=== PATIENT | female | born 1945 | race Caucasian/White ===

== ENCOUNTER → 2016-11-18 | Outpatient (REF) | payer MEDICARE ==
[~2016-11-18] MED LIST: CALCTAB23 PO; MULT1TAB8 PO
[2016-11-18 13:55] LABS: MEAN CORPUSCULAR HEMOGLOBIN 31.5 pg (27.0-33.0); MEAN CORPUSCULAR HGB CONC 32.6 g/dl (32.0-36.5); MEAN CORPUSCULAR VOLUME 96.8 fl (80.0-96.0); RED CELL DISTRIBUTION WIDTH 13.3 % (11.5-14.5); WHITE BLOOD COUNT 7.8 K/mm3 (4.0-10.0)
[2016-11-18 14:28] LABS: ALBUMIN 3.5 GM/DL (3.2-5.2); ALBUMIN/GLOBULIN RATIO 0.92 (1.00-1.93); ALKALINE PHOSPHATASE 83 U/L (45-117); ALT/SGPT 21 U/L (12-78); ANION GAP 4 MEQ/L (8-16); AST/SGOT 17 U/L (15-37); BILIRUBIN,TOTAL 0.4 MG/DL (0.2-1.0); BLOOD UREA NITROGEN 24 MG/DL (7-18); CARBON DIOXIDE LEVEL 34 MEQ/L (21-32); CHLORIDE LEVEL 101 MEQ/L (98-107); CHOLESTEROL LEVEL 223 MG/DL (<200); CREATININE FOR GFR 0.57 MG/DL (0.55-1.02); FREE T4 0.69 NG/DL (0.76-1.46); GLOMERULAR FILTRATION RATE > 60.0 (>39); GLUCOSE, FASTING 88 MG/DL (83-110); POTASSIUM SERUM 4.6 MEQ/L (3.5-5.1); SODIUM LEVEL 139 MEQ/L (136-145); TOTAL PROTEIN 7.3 GM/DL (6.4-8.2); TRIGLYCERIDES LEVEL 101 MG/DL (<150)
== END ==
LOC: M SFHCPLAZ 10:21
PROVIDERS: ATTEND Student in an Organized Health Care Education/Training Program
DX: Z79.899 Other long term (current) drug therapy (principal); R94.6 Abnormal results of thyroid function studies; R73.03 Prediabetes; E78.5 Hyperlipidemia, unspecified

== ENCOUNTER → 2016-11-25 | Outpatient (CLI) | payer MEDICARE ==
--- NOTE | 2016-11-25 15:40 | REP ---
LEFT LOWER EXTREMITY DUPLEX DOPPLER VENOUS ULTRASOUND WITH EVALUATION FOR VENOUS REFLUX: Real-time compression and duplex Doppler interrogation of the left lower extremity deep vein system performed. The left common femoral, superficial femoral and popliteal veins are fully compressible with transducer pressure and demonstrate normal spontaneous and phasic flow without evidence of deep venous thrombosis. Popliteal cyst is seen measuring 4.2 x 2.7 x 1.5 cm. Evaluation for venous reflux is performed. There is reflux in the left common femoral vein. There is an anterior accessory greater saphenous vein present without reflux. There is reflux in the greater saphenous vein at the saphenofemoral junction with a duration of 7.7 seconds, AP diameter is 8 mm. Reflux is also seen in the greater saphenous vein at the midthigh, duration 7.9 second, AP diameter 7 mm. There is reflux in the greater saphenous vein at the knee with a duration of 10.7 seconds, AP diameter 7 mm. There is no reflux in the superficial femoral vein, popliteal vein or lesser saphenous vein. Lesser saphenous vein measures 4 mm. Collateral vessel communicates with a greater saphenous vein in the proximal thigh with a diameter of 1.7 mm and another collateral seen communicating with a greater saphenous vein at the midthigh level, 1.3 mm in diameter. Please note that reflux was seen in the greater saphenous vein, both standing and in the supine position. Signed by Fran Boland MD 11/25/2016 04:55 P
== END ==
LOC: M RAD 12:21
PROVIDERS: ATTEND Student in an Organized Health Care Education/Training Program
DX: M71.21 Synovial cyst of popliteal space [Baker], right knee (principal); I83.812 Varicose veins of left lower extremity with pain

== ENCOUNTER → 2016-12-05 | Outpatient (REF) | payer MEDICARE | LOC: M SFHCWAGY 14:14 | PROVIDERS: ATTEND Nurse Practitioner Family | DX: Z12.4 Encounter for screening for malignant neoplasm of cervix (principal); N95.2 Postmenopausal atrophic vaginitis ==

== ENCOUNTER → 2016-12-05 | Outpatient (CLI) | payer MEDICARE ==
--- NOTE | 2016-12-05 15:51 | REPMRS ---
Patient History The patient states she had a clinical breast exam in 11/28 Patient is postmenopausal. No known family history of cancer. Digital Woman Screen Mammo: December 05, 2016 - Exam #: [id number] Bilateral CC and MLO view(s) were taken. Technologist: Elva Russo, Technologist Prior study comparison: October 26, 2015, digital woman screen mammo performed at [facility] to [facility]. September 26, 2014, digital woman screen mammo performed at [facility] to [facility]. FINDINGS: There are scattered fibroglandular densities. There has been no change in the appearance of the mammogram from the prior studies. There is a mild amount of residual fibroglandular tissue which is fairly symmetric. There is no interval development of dominant mass, architectural distortion, or clustered microcalcification suggestive of malignancy. ASSESSMENT: BI-RADS/ACR category 1 mammogram. Negative. Recommendation Routine screening mammogram in 1 year (for women over age 40). This mammogram was interpreted with the aid of an FDA-approved computer-aided dectection system. Electronically Signed By: Fran Boland MD 12/05/16 1037
== END ==
LOC: M WHC 13:15
PROVIDERS: ATTEND Nurse Practitioner Family
DX: Z01.419 Encounter for gynecological examination (general) (routine) without abnormal findings (principal); Z12.31 Encounter for screening mammogram for malignant neoplasm of breast; Z78.0 Asymptomatic menopausal state; Z12.12 Encounter for screening for malignant neoplasm of rectum
CPT/HCPCS: 82270; G0101; G0123; G0202

== ENCOUNTER → 2017-01-23 | Outpatient (REF) | payer MEDICARE | LOC: M SFHCPLAZ 11:12 | DX: E03.9 Hypothyroidism, unspecified (principal); E11.9 Type 2 diabetes mellitus without complications ==

== ENCOUNTER → 2017-02-23 | Outpatient (REF) | payer MEDICARE ==
[~2017-02-23] MED LIST changes: +CALC1TAB60 PO; -CALCTAB23 PO
== END ==
LOC: M SFHCPLAZ 14:27
PROVIDERS: ATTEND Family Medicine
DX: E11.9 Type 2 diabetes mellitus without complications (principal)

== ENCOUNTER → 2017-05-22 | Outpatient (REF) | payer MEDICARE | LOC: M SFHCPLAZ 13:31 | PROVIDERS: ATTEND Student in an Organized Health Care Education/Training Program | DX: E03.9 Hypothyroidism, unspecified (principal) ==

== ENCOUNTER → 2017-11-01 | Outpatient (REF) | payer MEDICARE ==
[2017-11-01 13:29] LABS: HEMATOCRIT 40.2 % (36.0-47.0); HEMOGLOBIN 12.6 g/dl (12.0-16.0); MEAN CORPUSCULAR HEMOGLOBIN 30.4 pg (27.0-33.0); MEAN CORPUSCULAR HGB CONC 31.3 g/dl (32.0-36.5); MEAN CORPUSCULAR VOLUME 96.9 fl (80.0-96.0); PLATELET COUNT, AUTOMATED 285 10^3/uL (150-450); RED BLOOD COUNT 4.15 10^6/uL (4.00-5.40); RED CELL DISTRIBUTION WIDTH 14.7 % (11.5-14.5); WHITE BLOOD COUNT 7.2 10^3/uL (4.0-10.0)
[2017-11-01 13:45] LABS: ALBUMIN 3.4 GM/DL (3.2-5.2); ALBUMIN/GLOBULIN RATIO 0.92 (1.00-1.93); ALKALINE PHOSPHATASE 79 U/L (45-117); ALT/SGPT 20 U/L (12-78); ANION GAP 6 MEQ/L (8-16); AST/SGOT 15 U/L (7-37); BILIRUBIN,TOTAL 0.5 MG/DL (0.2-1.0); BLOOD UREA NITROGEN 17 MG/DL (7-18); CALCIUM LEVEL 8.5 MG/DL (8.8-10.2); CARBON DIOXIDE LEVEL 30 MEQ/L (21-32); CHLORIDE LEVEL 108 MEQ/L (98-107); CREATININE FOR GFR 0.53 MG/DL (0.55-1.30); GLOMERULAR FILTRATION RATE > 60.0 (>39); GLUCOSE, FASTING 96 MG/DL (70-100); SODIUM LEVEL 144 MEQ/L (136-145); TOTAL PROTEIN 7.1 GM/DL (6.4-8.2)
[2017-11-01 14:02] LABS: ESTIMATED AVERAGE GLUCOSE 120 MG/DL (60-110); HEMOGLOBIN A1c 5.8 %
== END ==
LOC: M SFHCPLAZ 08:06
DX: Z00.00 Encounter for general adult medical examination without abnormal findings (principal); Z79.899 Other long term (current) drug therapy; E11.9 Type 2 diabetes mellitus without complications; E03.9 Hypothyroidism, unspecified
CPT/HCPCS: 84443

== ENCOUNTER → 2017-11-02 | Outpatient (REF) | payer MEDICARE | LOC: M SFHCPLAZ 13:40 | DX: E03.9 Hypothyroidism, unspecified (principal) ==

== ENCOUNTER → 2018-01-04 | Outpatient (CLI) | payer MEDICARE | LOC: M WHC 10:44 | DX: Z12.31 Encounter for screening mammogram for malignant neoplasm of breast (principal); Z78.0 Asymptomatic menopausal state; Z92.23 Personal history of estrogen therapy | CPT/HCPCS: 77067 ==

== ENCOUNTER → 2018-01-22 | Outpatient (REF) | payer MEDICARE | LOC: M SFHCPLAZ 10:36 → M SFHCADAM 10:40 | DX: E03.9 Hypothyroidism, unspecified (principal) | CPT/HCPCS: 84443 ==

== ENCOUNTER 2018-01-30 08:58 | Emergency (ER) | payer MEDICARE ==
[2018-01-30 09:40] LABS: BASO # 0.1 10^3/uL (0.0-0.2); BASO % 0.2 % (0.0-1.0); HEMATOCRIT 36.9 % (36.0-47.0); HEMOGLOBIN 12.1 g/dl (12.0-15.5); IMMATURE GRANULOCYTE % 0.8 % (0-3.0); LYMPH # 1.7 10^3/uL (1.5-4.5); LYMPH % 6.6 % (24.0-44.0); MEAN CORPUSCULAR HEMOGLOBIN 30.2 pg (27.0-33.0); MEAN CORPUSCULAR HGB CONC 32.8 g/dl (32.0-36.5); MONO % 9.6 % (0.0-5.0); NEUTROPHILS # 21.7 10^3/uL (1.8-7.7); NEUTROPHILS % 82.8 % (36.0-66.0); PLATELET COUNT, AUTOMATED 353 10^3/uL (150-450); RED BLOOD COUNT 4.01 10^6/uL (4.00-5.40); RED CELL DISTRIBUTION WIDTH 13.5 % (11.5-14.5); WHITE BLOOD COUNT 26.2 10^3/uL (4.0-10.0)
[2018-01-30] MEDS: NS 1,000 ML IV ×3 (09:45→13:05)
[2018-01-30] MEDS: NS 500 ML IV ×2 (09:45→10:03)
[2018-01-30 09:56] LABS: INR 1.18; PROTHROMBIN TIME 15.2 SECONDS (12.4-14.5)
[2018-01-30 10:05] LABS: MONO # 2.5 10^3/uL (0.0-0.8); POSITIVE DIFF POS FLAG
[2018-01-30 10:13] LABS: ALKALINE PHOSPHATASE 69 U/L (45-117); ALT/SGPT 20 U/L (12-78); ANION GAP 12 MEQ/L (8-16); AST/SGOT 13 U/L (7-37); BILIRUBIN,DIRECT 0.1 MG/DL (0.0-0.2); BILIRUBIN,TOTAL 0.4 MG/DL (0.2-1.0); BLOOD UREA NITROGEN 21 MG/DL (7-18); CALCIUM LEVEL 8.2 MG/DL (8.8-10.2); CARBON DIOXIDE LEVEL 25 MEQ/L (21-32); CHLORIDE LEVEL 101 MEQ/L (98-107); CPK CREATINE PHOSPHOKINASE 116 U/L (26-192); CREATININE FOR GFR 0.95 MG/DL (0.55-1.30); FREE T4 1.22 NG/DL (0.76-1.46); GLOMERULAR FILTRATION RATE > 60.0 (>39); GLUCOSE, FASTING 135 MG/DL (70-100); POTASSIUM SERUM 3.7 MEQ/L (3.5-5.1); SODIUM LEVEL 138 MEQ/L (136-145); TOTAL PROTEIN 7.4 GM/DL (6.4-8.2)
[2018-01-30 10:23] LABS: ALBUMIN 2.5 GM/DL (3.2-5.2); ALBUMIN/GLOBULIN RATIO 0.51 (1.00-1.93); CK-MB VALUE MASS 5.1 NG/ML (<3.6); MB/CK RELATIVE INDEX 4.39 (< OR =4)
[2018-01-30] MEDS: NS IV (10:45)
[2018-01-30] MEDS: DILUENT IV (10:45)
[2018-01-30] MEDS: MOXIFLOXACIN HCL 400 MG in APPROPRIATE DILUENT 1 EA IV (11:05)
[2018-01-30 11:23] LABS: LACTIC ACID SEPSIS PROTOCOL 1.1 MMOL/L (0.4-2.0)
[2018-01-30] MEDS ORDERED: GLUCOSE 4 GM CHEW TABLET PO (13:00)
[2018-01-30] MEDS ORDERED: GLUCAGON FOR INJ 1 MG VIAL (J1610) SC (13:00)
[2018-01-30] MEDS ORDERED: DEXTROSE 50% 50 ML SYRINGE IV (13:00)
[2018-01-30 13:12] LABS: BEDSIDE GLUCOSE 101 MG/DL (83-110)
[2018-01-30] MEDS ORDERED: ACETAMINOPHEN TAB 650MG DOSE (2X325MG) PO (13:15)
[2018-01-30] MEDS: ENOXAPARIN 40 MG/0.4 ML SYRINGE (J1650) SC (14:15)
[2018-01-30] MEDS: DIGOXIN INJ 0.5 MG/2 ML AMP (J1160) IV (14:29)
[2018-01-30 15:14] LABS: CK-MB VALUE MASS 16.3 NG/ML (<3.6); CPK CREATINE PHOSPHOKINASE 162 U/L (26-192); MB/CK RELATIVE INDEX 10.06 (< OR =4)
[2018-01-30 15:20] LABS: TROPONIN I 3.23 NG/ML (< 0.10)
[2018-01-30] MEDS: CLOPIDOGREL 75 MG TAB PO (15:57)
[2018-01-30] MEDS: ASPIRIN 81 MG ENTERIC TAB PO (16:00)
[2018-01-30 16:57] LABS: CK-MB VALUE MASS 15.4 NG/ML (<3.6); CPK CREATINE PHOSPHOKINASE 148 U/L (26-192)
[2018-01-30] MEDS ORDERED: HumaLOG INSULIN (NovoLOG) PER UNIT SC ×2 (17:30→21:00)
[2018-01-30 17:52] LABS: TROPONIN I 3.17 NG/ML (< 0.10)
[2018-01-30] MEDS ORDERED: SIMVASTATIN 40 MG TAB PO (21:00)
[2018-01-31] MEDS ORDERED: LEVOTHYROXINE 50MCG TABLET (0.05MG) PO (06:00)
[2018-01-31] MEDS ORDERED: DIGOXIN 0.125 MG TAB PO (09:00)
[2018-01-31] MEDS ORDERED: LevoFLOXacin IV 500 MG in APPROPRIATE DILUENT 1 EA IV (11:00)
== END 2018-01-30 18:41 | disposition other institution (70) ==
LOC: M ED 08:58
DX: J18.9 Pneumonia, unspecified organism (principal); E11.9 Type 2 diabetes mellitus without complications; E78.5 Hyperlipidemia, unspecified; Z79.82 Long term (current) use of aspirin; Z79.84 Long term (current) use of oral hypoglycemic drugs; Z79.899 Other long term (current) drug therapy; Z91.030 Bee allergy status
CPT/HCPCS: J2280

== ENCOUNTER → 2018-04-02 | Outpatient (CLI) | payer MEDICARE | LOC: M ADAMS 10:53 | DX: J18.9 Pneumonia, unspecified organism (principal); I51.7 Cardiomegaly | CPT/HCPCS: 71046 ==

== ENCOUNTER → 2018-04-20 | Outpatient (REF) | payer MEDICARE ==
[2018-04-20 17:13] LABS: CREATININE, URINE 74.6 MG/DL; MALB URINE SIEMENS 5.7 MG/L; MAU/CREAT RATIO 7.6 MCG/MG (0.0-30.0)
== END ==
LOC: M SFHCPLAZ 15:52
DX: E11.9 Type 2 diabetes mellitus without complications (principal)
CPT/HCPCS: 82043

== ENCOUNTER → 2018-06-19 | Outpatient (REF) | payer MEDICARE ==
[2018-06-19 16:19] LABS: FREE T4 0.89 NG/DL (0.76-1.46)
== END ==
LOC: M SFHCPLAZ 11:10
DX: E03.9 Hypothyroidism, unspecified (principal)
CPT/HCPCS: 84443

== ENCOUNTER → 2018-08-21 | Outpatient (REF) | payer MEDICARE ==
[~2018-08-21] MED LIST changes: +ASPI1TAB PO; +LEVO25TA5 PO; +LEVO50TA45 PO; +METF10004 PO; +SIMV10TA2 PO; +SIMV40TA2 PO; +VITA10002 PO
[2018-08-21 20:51] LABS: FREE T4 0.7 NG/DL (0.76-1.46); THYROID STIMULATING HORMONE 9.01 uIU/ML (0.358-3.740)
== END ==
LOC: M LABDRWAD 19:37
PROVIDERS: ATTEND Internal Medicine
DX: E03.9 Hypothyroidism, unspecified (principal)

== ENCOUNTER → 2018-10-05 | Outpatient (REF) | payer MEDICARE ==
[2018-10-05 16:46] LABS: HEMOGLOBIN A1c 5.9 %
[2018-10-05 17:00] LABS: FREE T4 0.77 NG/DL (0.76-1.46); THYROID STIMULATING HORMONE 7.07 uIU/ML (0.358-3.740)
== END ==
LOC: M SFHCPLAZ 14:56
DX: E03.9 Hypothyroidism, unspecified (principal); Z11.59 Encounter for screening for other viral diseases; E11.9 Type 2 diabetes mellitus without complications
CPT/HCPCS: 36415; 83036; 84439; 84443; 86803; G0463

== ENCOUNTER → 2019-01-21 | Outpatient (CLI) | payer MEDICARE ==
[~2019-01-21] MED LIST changes: -ASPI1TAB PO; +ASPI81TA26 PO
--- NOTE | 2019-01-21 13:23 | REPMRS ---
Patient History The patient states she had a clinical breast exam in 01/2019. Patient is postmenopausal. No known family history of cancer. Taking estrogen for 2 years. Digital Woman Screen Mammo: January 21, 2019 - Exam #: [id number] Bilateral CC and MLO view(s) were taken. Technologist: Elva Russo, Technologist Prior study comparison: January 04, 2018, digital woman screen mammo performed at [facility]. December 05, 2016, digital woman screen mammo performed at [facility]. October 26, 2015, digital woman screen mammo performed at [facility]. FINDINGS: There are scattered fibroglandular densities. There has been no change in the appearance of the mammogram from the prior studies. There is a mild amount of scattered fibroglandular density which is fairly symmetric. There is no interval development of dominant mass, architectural distortion, or clustered microcalcification suggestive of malignancy. 3-D tomosynthesis shows no additional findings. Assessment: BI-RADS/ACR category 1 mammogram. Negative Mammogram. Recommendation Routine screening mammogram of both breasts in 1 year (for women over age 40). This patient's Lifetime Breast Cancer RIsk is estimated at 3.1 %. This mammogram was interpreted with the aid of an FDA-approved computer-aided dectection system. Electronically Signed By: Bubba Mcarthur MD 01/21/19 8908
== END ==
LOC: M WHC 10:59
PROVIDERS: ATTEND Nurse Practitioner Family
DX: Z12.31 Encounter for screening mammogram for malignant neoplasm of breast (principal); Z78.0 Asymptomatic menopausal state; Z92.23 Personal history of estrogen therapy
CPT/HCPCS: 77063; 77067; G0463

== ENCOUNTER → 2020-01-23 | Outpatient (CLI) | payer MEDICARE ==
[~2020-01-23] MED LIST changes: +CYAN100049 PO; -SIMV10TA2 PO; +SIMV10TA21 PO; -SIMV40TA2 PO; +SIMV40TA20 PO; -VITA10002 PO
--- NOTE | 2020-01-23 14:52 | REPMRS ---
Patient History The patient states she had a clinical breast exam in December 2019. Patient is postmenopausal. No known family history of cancer. Took estrogen for 2 years. 3D TOMOSYNTHESIS WAS PERFORMED. The Radha Joshi lifetime risk for breast cancer is 2.8%. BREANNE Stein. Digital Woman Screen Mammo: January 23, 2020 - Exam #: [id number] Bilateral CC and MLO view(s) were taken. Technologist: Alexia Lu, Technologist Prior study comparison: January 21, 2019, bilateral digital woman screen mammo performed at [facility]. January 04, 2018, digital woman screen mammo performed at [facility]. FINDINGS: There are scattered fibroglandular densities. There has been no change in the appearance of the mammogram from the prior studies. There is a mild amount of residual fibroglandular tissue which is fairly symmetric. There is no interval development of dominant mass, architectural distortion, or clustered microcalcification suggestive of malignancy. Assessment: BI-RADS/ACR category 1 mammogram. Negative Mammogram. Recommendation Routine screening mammogram in 1 year (for women over age 40). This mammogram was interpreted with the aid of an FDA-approved computer-aided dectection system. Electronically Signed By: Fran Boland MD 01/23/20 2185
--- NOTE | 2020-01-30 10:14 | DEXA ---
AP SPINE L1 - L4 1.315 1.0 2.7 LT FEMUR TOTAL 0.802 -1.6 0.1 LT NECK 0.773 -1.9 0.0 RT FEMUR TOTAL 0.791 -1.7 0.0 RT NECK 0.794 -1.8 0.2 TOTAL BODY TOTAL OTHER COMMENTS: Normal bone densitometry of the spine. There is low bone density of the hips. The density of the spine has decreased 2.3% since 06/15/2012. The density of the left hip has decreased 4.1% since 06/15/2012. The density of the right hip has decreased 5.7% since 06/15/2012. The decreased density of the spine does represent a significant change. The decreased density of the left hip does represent a significant change. The decreased density of the right hip does represent a significant change. FOLLOW-UP: Recommendation for the next bone density exam: 2 years. LEEANN
== END ==
LOC: M WHC 12:32
PROVIDERS: ATTEND Nurse Practitioner Family
DX: Z12.31 Encounter for screening mammogram for malignant neoplasm of breast (principal); Z78.0 Asymptomatic menopausal state; M85.851 Other specified disorders of bone density and structure, right thigh; M85.852 Other specified disorders of bone density and structure, left thigh

== ENCOUNTER → 2021-02-09 | Outpatient (CLI) | payer MEDICARE ==
--- NOTE | 2021-02-09 10:43 | REPMRS ---
Patient History The patient states she had a clinical breast exam in January 2021. No known family history of cancer. Took estrogen for 2 years. Moderna vaccine 09/27/20 left arm. 10/26/20 left arm. Patient states no breast complaints today. Patient has signed MRS History Sheet. Digital Woman Screen Mammo: February 09, 2021 - Exam #: [id number] Bilateral CC and MLO view(s) were taken. Technologist: RT Robert Prior study comparison: January 23, 2020, bilateral digital woman screen mammo performed at [facility]. January 21, 2019, bilateral digital woman screen mammo performed at [facility]. FINDINGS: There are scattered fibroglandular densities. Screening. Digital screening (2D) mammography was performed bilaterally in the CC and MLO projections. Additionally, breast tomosynthesis (3D mammography) was performed bilaterally in the CC and MLO projections. Todays exam was compared to the prior exam/exams. By history, the patient has no complaints of a palpable breast abnormality or other significant breast complaints. The breasts are unchanged in size and shape. There are no miranda-soft tissue densities or spiculated masses. There is no internal architectural distortion. Once again, stable benign appearing calcifications are seen.There are no suspicious miranda-calcific clusters. Skin thickening or nipple retraction is not present. IMPRESSION: BI-RADS Category 2- Benign Findings. There is no evidence of malignant alteration of the breasts. Followup examination recommended in one year. The Volpara volumetric breast density category is B, there are scattered areas of fibroglandular densities. This mammogram was read [facility] the assistance [facility],an FDA approved computer aided detection system for mammography. The lifetime Tyrer-Cuzick score is 2.6 % Negative x-ray reports should not delay surgical consultation if a dominant or clinically suspicious mass is present. Not all breast cancers can be identified by mammography. Therefore, we recommend that you continue to perform regular breast self-examination and physical examination and then promptly contact your physician of any concerns or changes. Adenosis and dense breasts may obscure an underlying neoplasm. Assessment: BI-RADS/ACR category 2 mammogram. Benign Findings. Recommendation Routine screening mammogram of both breasts in 1 year. Electronically Signed By: Marco Antonio Samayoa DO 02/09/21 1047
== END ==
LOC: M WHC 07:46
PROVIDERS: ATTEND Nurse Practitioner Women's Health
DX: Z12.31 Encounter for screening mammogram for malignant neoplasm of breast (principal); Z92.23 Personal history of estrogen therapy; R92.1 Mammographic calcification found on diagnostic imaging of breast
CPT/HCPCS: 77063; 77067; G0463

== ENCOUNTER → 2021-06-03 | Outpatient (CLI) | payer MEDICARE ==
[~2021-06-03] MED LIST changes: +CALC-356; +D31000TA2 PO; +ESTR0.1C5; +METO1TAB87 PO
== END ==
LOC: M LABSMTC 10:01
PROVIDERS: ATTEND Anesthesiology
DX: Z01.818 Encounter for other preprocedural examination (principal)

== ENCOUNTER 2021-06-08 08:08 | Day surgery (SDC) | payer MEDICARE ==
[~2021-06-08] VITALS: Ht 162.6 cm; Wt 73.5 kg
[~2021-06-08 08:08] MED LIST changes: +LIDOCAINE 2% 100MG/5ML SDV (FOR ANES.) As Ordered ONE; +NS 1,000 ML IV ONE; +propofoL 200 MG/20 ML VIAL As Ordered ONE
--- OUTSIDE RECORDS SUMMARY | 2021-06-08 08:16 | CCD ---
Author Author [facility] Organization [facility] Address Unknown Phone Unavailable Care Team Providers Care Medical Cash Poster Name Role Phone Pattie Alcaraz Unavailable PROBLEMS Type Condition ICD9-CM Code [id number] Code Onset Dates Condition S tatus W/U Status Risk SNOMED Code Notes Problem Hypercholesterolemia E78.0 Active confirmed 81957994 Problem Acquired hypothyroidism E03.9 Active confirmed 286181073 Problem Rectocele N81.6 Active confirmed 063496034 Problem Hyperlipidemia, unspecified hyperlipidemia type E7 8.5 Active confirmed 87259837 Problem Type 2 diabetes mellitus wit hout complication, without long-term current use of insulin E11.9 Active confirmed 268144298 Problem Vaginal atrophy N95.2 Active confirmed 2971 11006 Problem Cystocele, midline N81.11 Active confirmed 4 24655543 Problem Encounter for pessary maintenance Z46.89 Active confirmed 218861882 Problem Pure hypercholesterolemia E78.00 Active confirmed 646104020 Problem Stress incontinence N39.3 Active confirmed 06456215 Problem Pessary maintenance Z46.89 Active confirmed 926478472 Problem Constipation, unspecified constipation type K59.00 Active confirmed 75357637 Problem Status post non-ST elevation myocardial infarction (NSTEMI ) I25.2 Active confirmed 349051385 Problem History of non-ST elevation myocardial infarction (NSTEMI) I25.2 Active confirmed 741056721 Problem PSVT (paroxysmal supraventricular tachycardia) I47 .1 Active confirmed 76407480 Problem Demand ischemia I24.8 Active confirmed 9355 16802 ALLERGIES Allergen (clinical drug ingredient) Drug/Non Drug Allergy do cumented on EMR Reaction Allergy Type Onset Date Status Bees Anaphylaxis Non Drug Allergy Active ENCOUNTERS from 1944 to 2021-03-10 Encounter Location Date Provider Diagnosis [facility] [address] [facility] [phone] [place] [address] Feb, Pattie Alcaraz Pessary maintenance Z46.89 IMMUNIZATIONS Vaccine Route Administration Date Status Influenza 18 yrs & older Flublok IM Intramuscular Jun 26, 2020 Administered Influenza 18 yrs & older Flublok IM Intramuscular Jun 06, 2018 Administered Influenza (High Dose 65 & up) Unknown May 30, 2017 Ot hers Influenza (High Dose 65 & up) IM Intramuscular May 19, 2017 A dministered Pneumococcal Adult 0.5mL Pneumovax 23 IM Intramuscular May 19 017 Administered TDAP IM Intramuscular November 25, 2015 Administered Pneumococcal 0.5mL Prevnar 13 IM Intramuscular November 25, 2015 A dministered Hepatitis B Adult 1.0mL Engerix-B IM Intramuscular March 03, 2017 Administered SOCIAL HISTORY Tobacco Use: Social History Observation Description Date Details (start date - stop date) Never Smoker Sex Assigned At : Social History Observation Description Sex Assigned At Unknown Audit Question Answer Notes Total Score: 0 Interpretation: Alcohol Education Language: Question Answer Notes Languages spoken: [place] Citizen Islam: Question Answer Notes Islam 03 Worship Sexual Hx: Question Answer Notes Had sex in the last 12 months (vaginal, oral, or anal)? No Have you ever had an STD? No Drug and Alcohol Question Answer Notes Total Score: 0 Interpretation: No problems reported Alcohol Screening: Question Answer Notes Did you have a drink containing alcohol in the past year? No Points 0 Interpretation Negative BMI Care Goal Follow-Up Question Answer Notes Above Normal BMI Follow-Up Giving encouragement to exercise Tobacco Use: Question Answer Notes Are you a: never smoker never smoker REASON FOR REFERRAL No Information VITAL SIGNS No information MEDICATIONS Medication SIG (Take, Route, Frequency, Duration) Notes Start Da te End Date Status Simvastatin 40 MG 1 tablet in the evening Orally Once a day for 30 da ys Active Synthroid 25 MCG 1.5 tablet on an empty stoma ch in the morning Orally Once a day for 90 day(s) Unknown Simvastatin 40 MG TAKE 1 TABLET BY MOUTH IN THE EVENING for 30 Not-Taking Vitamin B-12 1000 MCG 1 tablet Orally Once a day Active Multi Complete 1 tab(s) Orally daily Active EPINEPHrine 0.3 MG/0.3ML 1 dose Injection daily as needed for 30 day(s) Nov, Active metFORMIN HCl 1000 MG TAKE ONE TABLET BY MOUTH TWICE A DAY WITH ABA D for 30 Active Nystatin 938770 UNIT/GM 1 application to affected ar ea Externally Twice a day to umbilicus as needed for 14 days May, Active Metoprolol Tartrate 25 mg 1/2 tab Orally Twice a day Active Levothyroxine Sodium 25 MCG TAKE 1 AND 1/2 TABLET BY M OUTH EVERY MORNING ON EMPTY STOMACH Oral for 30 Active Aspirin 81 MG 1 tablet Orally Once a day Feb, Active Estrace 0.1 MG/GM 1 gm Vaginal twice a week for 90 days Active Calcium + Vitamin D3 600-10 MG-MCG 1 tablet with a erlinda l Orally Once a day for 30 day(s) Jun, Active PROCEDURES No Information RESULTS No Results REASON FOR VISIT refill MEDICAL (GENERAL) HISTORY Type Description Date Medical History Hyperlipidemia 20% ASCVD risk 11/28 Medical History DM2 dx 2016 Last A1C 5.9 10/02 Medical History mild Hypothyroidism dx 2016 Medical History Last colon 2015, one polyp. Next colonos copy in 2020 Medical History Last Dexa 06/25 normal, next one 2021 Medical History Vaccine: Prevnar 13 11/27, may need P 23 in 2016 Medical History cystocele rectocele uterine prolpase ,Ring pessary # 4 no support Medical History pneumonia 01/2018 inpatient at [facility] ad heart cath and Echo Medical History PSVT- 01/2018 responded to adenosine Surgical History BTL Surgical History colonoscopy 2015 Hospitalization History Vaginal 1964 Hospitalization History Vaginal 1965 Hospitalization History Vaginal 1968 Hospitalization History Vaginal 1980 Hospitalization History heart attack/pneumonia 01/30/2018-01/13 Goals Section No Information Health Concerns No Information MEDICAL EQUIPMENT No Information MENTAL STATUS No Information FUNCTIONAL STATUS No Information ASSESSMENTS Encounter Date Diagnosis Assessment Notes Treatment Notes Treatm ent Clinical Notes Feb, Pessary maintenance (ICD-10 - Z46.89) PLAN OF TREATMENT Medication Medication Name Sig Start Date Stop Date Simvastatin 40 MG 1 tablet in the evening Orally Once a day for 30 days Estrace 0.1 MG/GM 1 gm Vaginal twice a week for 90 days metFORMIN HCl 1000 MG TAKE ONE TABLET BY MOUTH TWICE A DAY WITH FOOD for 30 Next Appt Details Provider Name:Pattie Alcaraz, 2021-05-12 09:40:00 AM, [address] [facility], , [place], [address], Insurance Providers Payer Name Payer Address Payer Phone Insured Name Patient Relati onship to Insured Coverage Start Date Coverage End Date [facility] [address] [address] [facility] [phone] RICHAR RAE self
--- OUTSIDE RECORDS SUMMARY | 2021-06-08 08:16 | CCD ---
Author Author [facility] Organization [facility] Address Unknown Phone Unavailable Care Team Providers Care Legal Entity Controller Name Role Phone Pattie [place] Unavailable PROBLEMS Type Condition ICD9-CM Code [id number] Code Onset Dates Condition S tatus W/U Status Risk SNOMED Code Notes Problem Hypercholesterolemia E78.0 Active confirmed 61636105 Problem Acquired hypothyroidism E03.9 Active confirmed 519557923 Problem Rectocele N81.6 Active confirmed 078901413 Problem Hyperlipidemia, unspecified hyperlipidemia type E7 8.5 Active confirmed 77178794 Problem Type 2 diabetes mellitus wit hout complication, without long-term current use of insulin E11.9 Active confirmed 508444093 Problem Vaginal atrophy N95.2 Active confirmed 2971 87550 Problem Cystocele, midline N81.11 Active confirmed 4 62079546 Problem Encounter for pessary maintenance Z46.89 Active confirmed 743598534 Problem Pure hypercholesterolemia E78.00 Active confirmed 344863216 Problem Stress incontinence N39.3 Active confirmed 32906915 Problem Pessary maintenance Z46.89 Active confirmed 604880575 Problem Constipation, unspecified constipation type K59.00 Active confirmed 26170915 Problem Status post non-ST elevation myocardial infarction (NSTEMI ) I25.2 Active confirmed 965737503 Problem History of non-ST elevation myocardial infarction (NSTEMI) I25.2 Active confirmed 678082161 Problem PSVT (paroxysmal supraventricular tachycardia) I47 .1 Active confirmed 63465744 Problem Demand ischemia I24.8 Active confirmed 8722 85954 ALLERGIES Allergen (clinical drug ingredient) Drug/Non Drug Allergy do cumented on EMR Reaction Allergy Type Onset Date Status Bees Anaphylaxis Non Drug Allergy Active ENCOUNTERS from 1944 to 2021-03-30 Encounter Location Date Provider Diagnosis [facility] Jose G [address] [facility] [phone] [place] [address] Mar, Pattie [place] IMMUNIZATIONS Vaccine Route Administration Date Status Influenza [...] Education Language: Question Answer Notes Languages spoken: Irish Bahai: Question Answer Notes Bahai 03 Yazidism Sexual Hx: Question Answer Notes Had sex [...] WITH ABA D for 30 Active Nystatin 439256 UNIT/GM 1 application to affected ar ea Externally Twice a day to umbilicus as needed for 14 days May, Active Metoprolol Tartrate 25 mg 1/2 tab Orally Twice a day not sure of dose Active Levothyroxine Sodium 25 MCG TAKE 1 [...] Information RESULTS No Results REASON FOR VISIT sour stomach MEDICAL (GENERAL) HISTORY Type Description Date Medical [...] support Medical History pneumonia 01/2018 inpatient at [facility] ad heart cath and Echo Medical History PSVT- 01/2018 responded to adenosine Surgical History BTL Surgical History colonoscopy 2015 Hospitalization History Vaginal 1964 Hospitalization History Vaginal 1965 Hospitalization History Vaginal 1968 Hospitalization History Vaginal 1980 Hospitalization History heart attack/pneumonia 01/30/2018-01/13 Goals Section No Information Health Concerns No Information MEDICAL EQUIPMENT No Information MENTAL STATUS No Information FUNCTIONAL STATUS No Information ASSESSMENTS No Information PLAN OF TREATMENT Medication Medication Name Sig Start Date Stop Date Simvastatin 40 MG 1 tablet in the evening Orally Once a day for 30 days Estrace 0.1 MG/GM 1 gm Vaginal twice a week for 90 days metFORMIN HCl 1000 MG TAKE ONE TABLET BY MOUTH TWICE A DAY WITH FOOD for 30 Next Appt Details Provider Name:Ashely Miller, 2 03:30:00 PM, [address] [facility], , [place], [address], Provider Name:Pattie Alcaraz, 2021-05-12 09:40:00 AM, [address] [facility], , [place], [address], Insurance Providers Payer Name Payer Address Payer Phone Insured Name Patient Relati onship to Insured Coverage Start Date Coverage End Date [facility] [address] [address] [facility] [id number] RICHAR RAE self
--- OUTSIDE RECORDS SUMMARY | 2021-06-08 08:16 | CCD ---
Author Author [facility] Organization [facility] Address Unknown Phone Unavailable Care Team Providers Care Stretching Machine Operator Name Role Phone Ashely Miller Unavailable PROBLEMS Type Condition ICD9-CM Code [id number] Code Onset Dates Condition S tatus W/U Status Risk SNOMED Code Notes Problem Rectocele N81.6 Active confirmed 217781932 Problem Hypercholesterolemia E78.0 Active confirmed 11414238 Problem Type 2 diabetes mellitus wit hout complication, without long-term current use of insulin E11.9 Active confirmed 364772932 Problem Acquired hypothyroidism E03.9 Active confirmed 134937899 Problem Constipation, unspecified constipation type K59.00 Active confirmed 74270119 Problem Hyperlipidemia, unspecified hyperlipidemia type E7 8.5 Active confirmed 88162847 Problem Cystocele, midline N81.11 Active confirmed 4 10710034 Problem Encounter for pessary maintenance Z46.89 Active confirmed 160328318 Problem Status post non-ST elevation myocardial infarction (NSTEMI ) I25.2 Active confirmed 624520013 Problem Pessary maintenance Z46.89 Active confirmed 904818760 Problem Vaginal atrophy N95.2 Active confirmed 2971 30564 Problem Hypothyroidism, unspecified type E03.9 Active conf irmed 73424651 Problem Stress incontinence N39.3 Active confirmed 46794971 Problem History of non-ST elevation myocardial infarction (NSTEMI) I25.2 Active confirmed 214594452 Problem PSVT (paroxysmal supraventricular tachycardia) I47 .1 Active confirmed 51807890 Problem Demand ischemia I24.8 Active confirmed 4134 76216 Problem Pure hypercholesterolemia E78.00 Active confirmed 961822427 ALLERGIES Allergen (clinical drug ingredient) Drug/Non Drug Allergy do cumented on EMR Reaction Allergy Type Onset Date Status Bees Anaphylaxis Non Drug Allergy Active ENCOUNTERS from 1944 to 2021-04-11 Encounter Location Date Provider Diagnosis [facility] Resident [address] [phone] [place] [address] Mar, Ashely Miller Pure hypercholeste rolemia E78.00 ; History of non-ST elevation myocardial infarction (NSTEMI) I25.2 ; PSVT (paroxysmal supraventricular tachycardia) I47.1 ; Prediabetes R73.03 and Hypothyroidism, uns pecified type E03.9 IMMUNIZATIONS Vaccine Route Administration Date Status Influenza [...] Education Language: Question Answer Notes Languages spoken: German Buddhism: Question Answer Notes Buddhism 03 Jew Sexual Hx: Question Answer Notes Had sex [...] REASON FOR REFERRAL No Information VITAL SIGNS Weight 165.2 lbs Mar, Weight-kg 74.93 kg Mar, Height 66 in Mar, BMI 26.66 kg/m2 Mar, Heart Rate 78 /min Mar, Respiratory Rate 18 /min Mar, Temperature 97.2 degrees Fahrenheit Mar, Oximetry 98 Mar, Blood pressure systolic 130 mm Hg Mar, Blood pressure diastolic 60 mm Hg Mar, MEDICATIONS Medication SIG (Take, Route, Frequency, Duration) Notes Start Da te End Date Status Simvastatin 40 MG TAKE 1 TABLET BY MOUTH IN THE EVENING for 30 Not-Taking metFORMIN HCl 1000 MG TAKE ONE TABLET BY MOUTH TWICE A DAY WITH FOOD Active Levothyroxine Sodium 25 MCG TAKE 1 AND 1/2 TABLET BY M OUTH EVERY MORNING ON EMPTY STOMACH Oral Active Estrace 0.1 MG/GM 1 gm Vaginal twice a week for 90 days Active Metoprolol Tartrate 25 mg 1/2 tab Orally Twice a day not sure of dose Active Nystatin 190149 UNIT/GM 1 application to affected ar ea Externally Twice a day to umbilicus as needed May, Active EPINEPHrine 0.3 MG/0.3ML 1 dose Injection daily as needed for 30 day(s) Nov, Active Vitamin B-12 1000 MCG 1 tablet Orally Once a day Active Aspirin 81 MG 1 tablet Orally Once a day Feb, Active Multi Complete 1 tab(s) Orally daily Active Simvastatin 40 MG 1 tablet in the evening Orally Once a day for 30 da ys Active Calcium + Vitamin D3 600-10 MG-MCG 1 tablet with a erlinda l Orally Once a day for 30 day(s) Jun, Active Synthroid 25 MCG 1.5 tablet on an empty stoma ch in the morning Orally Once a day for 90 day(s) Unknown PROCEDURES No Information RESULTS No Results REASON FOR VISIT sour stomach x 3 times month MEDICAL (GENERAL) HISTORY Type Description Date Medical History Hyperlipidemia 20% ASCVD risk 11/28 Medical History DM2 dx 2016 Last A1C 5.9 10/02 Medical History mild Hypothyroidism dx 2016 Medical History Last colon 2015, one polyp. Next colonos copy in 2020 Medical History Last Dexa 06/25 normal, next one 2021 Medical History Vaccine: Prevnar 13 11/27, may need P 23 in 2017 Medical History cystocele rectocele uterine prolpase ,Ring pessary # 4 no support Medical History pneumonia 01/2018 inpatient at [facility] ad heart cath and Echo Medical History PSVT- 01/2018 responded to adenosine Surgical History BTL Surgical History colonoscopy 2015 Hospitalization History Vaginal 1963 Hospitalization History Vaginal 1964 Hospitalization History Vaginal 1967 Hospitalization History Vaginal 1979 Hospitalization History heart attack/pneumonia 01/30/2018-01/13 Goals Section No Information Health Concerns No Information MEDICAL EQUIPMENT No Information MENTAL STATUS No Information FUNCTIONAL STATUS No Information ASSESSMENTS Encounter Date Diagnosis Assessment Notes Treatment Notes Treatm ent Clinical Notes Mar, Pure hypercholesterolemia (ICD-10 - E78.00) - Patient had lipid panel done in 1999 which showed total cholesterol of 223, HDL of 54, LDL of 148. Unlikely was started on simvastatin at that point. -Given that it has been more than 4 years she got her lipid panel done well get a repeat lipid panel done prior to her next appointment with her PCP. - Mar, History of non-ST elevation myocardial infarction (NSTEMI) (ICD-10 - I25.2) - Patient had history of NSTEMI in the past and was started on aspirin we will continue the same. Mar, PSVT (paroxysmal supraventricular tachycardia) ( ICD-10 - I47.1) - Patient has history of SVT and takes metoprolol for the same. We will continue the same. Mar, Prediabetes (ICD-10 - R73.03) - Patient is prediabetic, and her A1c was 5.9 done in September 2018. We will get a repeat A1c done prior to her next appointment with PCP. Patient is right now taking Metformin. Mar, Hypothyroidism, unspecified type (ICD-10 - E03.9 ) - Patient's last TSH was done on November 2018 which is 7.07, T4 level 0.7. Patient denies having any constipation, fatigue, weight gain, any other symptoms of hypothyroidism. -We will recheck her TSH levels and T4 prior to her next appointment with PCP. Mar, Other - Patient had her mammogram done in January and reports to be normal per patient. - Patient had bone scan done which reports to be normal. Per patient. Things to follow-up in the following appointment. -Hemoglobin A1c, lipid panel, TSH and T4 levels [labs already ordered]. -Patient is not hypertensive in order to start her on TATIANA inhibitor and she is only prediabetic not diabetic as well[note to PCP as a reply to prior telephone encounter] PLAN OF TREATMENT Medication Medication Name Sig Start Date Stop Date Levothyroxine Sodium 25 MCG TAKE 1 AND 1/2 TABLET BY M OUTH EVERY MORNING ON EMPTY STOMACH Oral Metoprolol Tartrate 25 mg 1/2 tab Orally Twice a day Simvastatin 40 MG 1 tablet in the evening Orally Once a day for 30 days metFORMIN HCl 1000 MG TAKE ONE TABLET BY MOUTH TWICE A DAY WITH FOOD Aspirin 81 MG 1 tablet Orally Once a day Feb, Treatment Notes Assessment Notes Clinical Notes Pure hypercholesterolemia - Patient had lipid panel done in 1999 which showed total cholesterol of 223, HDL of 54, LDL of 148. Unlikely was started on simvastatin at that point.-Given that it has been more than 4 years she got her lipid panel done well get a repeat lipid panel done prior to her next appointment with her PCP.- History of non-ST elevation myocardial infarction (NSTEMI) - Patient had history of NSTEMI in the past and was started on aspirin we will continue the same. PSVT (paroxysmal supraventricular tachycardia) - Patient has history of SVT and takes metoprolol for the same. We will continue the same. Prediabetes - Patient is prediab etic, and her A1c was 5.9 done in September 2018. We will get a repeat A1c done prior to her next appointment with PCP. Patient is right now taking Metformin. Hypothyroidism, unspecified type - Jazmin villagran's last TSH was done on November 2018 which is 7.07, T4 level 0.7. Patient denies having any constipation, fatigue, weight gain, any other symptoms of hypothyroidism.-We will recheck her TSH leve ls and T4 prior to her next appointment with PCP. Future Test Test Name Order Date FREE T4 & TSH PANEL [id number] LIPID PANEL (CARDIAC RISK) [id number] HEMOGLOBIN A1c [id number] Next Appt Details 6 Months Reason:6 months follow-up with PCP. Patient has labs ordered to be done on September 14, 2021 prior to seeing the PCP. When calling to make an appointment please let the patient know. Provider Name:Pattie Alcaraz, 2021-05-12 09:40:00 AM, [address] [facility] [facility], , [place], [address], Follow Up:6 Months6 months follow-up with PCP. Patient has labs ordered to be done on September 14, 2021 prior to seeing the PCP. When calling to make an appointment please let the patient know. Insurance Providers Payer Name Payer Address Payer Phone Insured Name Patient Relati onship to Insured Coverage Start Date Coverage End Date [facility] [address] [address] [facility] [phone] RICHAR RAE self
--- OUTSIDE RECORDS SUMMARY | 2021-06-08 08:16 | CCD ---
Author Author [facility] Organization [facility] Address Unknown Phone Unavailable Care Team Providers Care Greige Goods Marker Name Role Phone Pattie Alcaraz Unavailable PROBLEMS Type Condition ICD9-CM Code [id number] Code Onset Dates Condition S tatus W/U Status Risk SNOMED Code Notes Problem Rectocele N81.6 Active confirmed 339256073 Problem Hypercholesterolemia E78.0 Active confirmed 04097963 Problem Type 2 diabetes mellitus wit hout complication, without long-term current use of insulin E11.9 Active confirmed 522552055 Problem Acquired hypothyroidism E03.9 Active confirmed 528190044 Problem Constipation, unspecified constipation type K59.00 Active confirmed 27617735 Problem Hyperlipidemia, unspecified hyperlipidemia type E7 8.5 Active confirmed 08704209 Problem Cystocele, midline N81.11 Active confirmed 4 99520169 Problem Encounter for pessary maintenance Z46.89 Active confirmed 639068036 Problem Status post non-ST elevation myocardial infarction (NSTEMI ) I25.2 Active confirmed 238665413 Problem Pessary maintenance Z46.89 Active confirmed 200597592 Problem Vaginal atrophy N95.2 Active confirmed 2971 16702 Problem Hypothyroidism, unspecified type E03.9 Active conf irmed 68945863 Problem Stress incontinence N39.3 Active confirmed 68457633 Problem History of non-ST elevation myocardial infarction (NSTEMI) I25.2 Active confirmed 032072461 Problem PSVT (paroxysmal supraventricular tachycardia) I47 .1 Active confirmed 20107391 Problem Demand ischemia I24.8 Active confirmed 4134 65120 Problem Pure hypercholesterolemia E78.00 Active confirmed 196415046 ALLERGIES Allergen (clinical drug ingredient) Drug/Non Drug Allergy do cumented on EMR Reaction Allergy Type Onset Date Status Bees Anaphylaxis Non Drug Allergy Active ENCOUNTERS from 1944 to 2021-05-12 Encounter Location Date Provider Diagnosis [facility] [address] [facility] [facility] [phone] [place] [address] Apr, Pattie Noblec Cutaneous candidiasi s B37.2 ; Pessary maintenance Z46.89 and Vaginal atrophy N95.2 IMMUNIZATIONS Vaccine Route Administration Date Status Influenza [...] Education Language: Question Answer Notes Languages spoken: Syriac Pentecostalism: Question Answer Notes Pentecostalism 03 Samaritan Sexual Hx: Question Answer Notes Had sex [...] FOR REFERRAL No Information VITAL SIGNS Weight 168 lbs Apr, Height 66 in Apr, BMI 27.11 kg/m2 Apr, Blood pressure systolic 122 mm Hg Apr, Blood pressure diastolic 80 mm Hg Apr, MEDICATIONS Medication SIG (Take, Route, Frequency, Duration) Notes Start Da te End Date Status Simvastatin 40 MG 1 tablet in the evening Orally Once a day for 30 da ys Active Vitamin B-12 1000 MCG 1 tablet Orally Once a day Active Multi Complete 1 tab(s) Orally daily Active Simvastatin 40 MG TAKE 1 TABLET BY MOUTH IN THE EVENING for 30 Not-Taking Nystatin 679682 UNIT/GM 1 application to affected ar ea Externally Twice a day to umbilicus as needed May, Active Metoprolol Tartrate 25 mg 1/2 tab Orally Twice a day not sure of dose Active Aspirin 81 MG 1 tablet Orally Once a day Feb, Active Synthroid 25 MCG 1.5 tablet on an empty stoma ch in the morning Orally Once a day for 90 day(s) Unknown Levothyroxine Sodium 25 MCG TAKE 1 AND 1/2 TABLET BY M OUTH EVERY MORNING ON EMPTY STOMACH Oral Active Calcium + Vitamin D3 600-10 MG-MCG 1 tablet with a erlinda l Orally Once a day for 30 day(s) Jun, Active metFORMIN HCl 1000 MG TAKE ONE TABLET BY MOUTH TWICE A DAY WITH FOOD Active Estrace 0.1 MG/GM 1 gm Vaginal twice a week for 90 days Active EPINEPHrine 0.3 MG/0.3ML 1 dose Injection daily as needed for 30 day(s) Nov, Active PROCEDURES No Information RESULTS No Results REASON FOR VISIT 3 MO PESSARY CK MEDICAL (GENERAL) HISTORY Type Description Date Medical [...] support Medical History pneumonia 01/2018 inpatient at [facility] ad heart cath and Echo Medical History PSVT- 01/2018 responded to adenosine Surgical History BTL Surgical History colonoscopy 2016 Hospitalization History Vaginal 1964 Hospitalization History Vaginal 1965 Hospitalization History Vaginal 1968 Hospitalization History Vaginal 1980 Hospitalization History heart attack/pneumonia 01/30/2018-01/13 Goals Section No Information Health Concerns No Information MEDICAL EQUIPMENT No Information MENTAL STATUS No Information FUNCTIONAL STATUS No Information ASSESSMENTS Encounter Date Diagnosis Assessment Notes Treatment Notes Treatm ent Clinical Notes Apr, Cutaneous candidiasis (ICD-10 - B37.2) Apr, Pessary maintenance (ICD-10 - Z46.89) Apr, Vaginal atrophy (ICD-10 - N95.2) PLAN OF TREATMENT Medication Medication Name Sig Start Date Stop Date Nystatin 768493 UNIT/GM 1 application to affected ar ea Externally Twice a day to umbilicus as needed May, Estrace 0.1 MG/GM 1 gm Vaginal twice a week for 90 days Next Appt Details 3 Months Reason:pessary maintenance Provider Name:Pattie Alcaraz, 2021-08-11 01:40:00 PM, [address] [facility], , [place], [address], Follow Up:3 Monthspessary maintenance Insurance Providers Payer Name Payer Address Payer Phone Insured Name Patient Relati onship to Insured Coverage Start Date Coverage End Date [facility] [address] [address] [facility] [address] [phone] RICHAR RAE self
--- OUTSIDE RECORDS SUMMARY | 2021-06-08 08:16 | CCD ---
Author Author [facility] Organization [facility] Address Unknown Phone Unavailable Care Team Providers Care Aboriginal Ceremonial Celebrant Name Role Phone Linn Mckeon MD Unavailable Unavailable Linn Mckeon MD Unavailable Unavailable Linn Mckeon MD Unavailable Unavailable Linn Mckeon MD Unavailable Unavailable Linn Mckeon MD Unavailable Unavailable Linn Mckeon MD Unavailable Unavailable Linn Mckeon MD Unavailable Unavailable Linn Mckeon MD Unavailable Unavailable Linn Mckeon MD Unavailable Unavailable Linn Mckeon MD Unavailable Unavailable Linn Mckeon MD Unavailable Unavailable Linn Mckeon MD Unavailable Unavailable Linn Mckeon MD Unavailable Unavailable Linn Mckeon MD Unavailable Unavailable Linn Mckeon MD Unavailable Unavailable Linn Mckeon MD Unavailable Unavailable Linn Mckeon MD Unavailable Unavailable Linn Mckeon MD Unavailable Unavailable Linn Mckeon MD Unavailable Unavailable Linn Mckeon MD Unavailable Unavailable Linn Mckeon MD Unavailable Unavailable Linn Mckeon MD Unavailable Unavailable Linn Mckeon MD Unavailable Unavailable Linn Mckeon MD Unavailable Unavailable Linn Mckeon MD Unavailable Unavailable Linn Mckeon MD Unavailable Unavailable Slezka, Vojtech MD Unavailable Unavailable Slezka, Vojtech MD Unavailable Unavailable Slezka, Vojtech MD Unavailable Unavailable Slezka, Vojtech MD Unavailable Unavailable Slezka, Vojtech MD Unavailable Unavailable Slezka, Vojtech MD Unavailable Unavailable Slezka, Vojtech MD Unavailable Unavailable Slezka, Vojtech MD Unavailable Unavailable Slezka, Vojtech MD Unavailable Unavailable Slezka, Vojtech MD Unavailable Unavailable Slezka, Vojtech MD Unavailable Unavailable Slezka, Vojtech MD Unavailable Unavailable Slezka, Vojtech MD Unavailable Unavailable Slezka, Vojtech MD Unavailable Unavailable Slezka, Vojtech MD Unavailable Unavailable Slezka, Vojtech MD Unavailable Unavailable Slezka, Vojtech MD Unavailable Unavailable Slezka, Vojtech MD Unavailable Unavailable Slezka, Vojtech MD Unavailable Unavailable Slezka, Vojtech MD Unavailable Unavailable Slezka, Vojtech MD Unavailable Unavailable Slezka, Vojtech MD Unavailable Unavailable Slezka, Vojtech MD Unavailable Unavailable Slezka, Vojtech MD Unavailable Unavailable Slezka, Vojtech MD Unavailable Unavailable Slezka, Vojtech MD Unavailable Unavailable Slezka, Vojtech MD Unavailable Unavailable Slezka, Vojtech MD Unavailable Unavailable Slezka, Vojtech MD Unavailable Unavailable Slezka, Vojtech MD Unavailable Unavailable Slezka, Vojtech MD Unavailable Unavailable Slezka, Vojtech MD Unavailable Unavailable Re-disclosure Warning The records that you are about to access may contain information from federally-assisted alcohol or drug abuse programs. If such information is present, then the following federally mandated warning applies: This information has been disclosed to you from records protected by federal confidentiality rules (42 CFR part 2). The federal rules prohibit you from making any further disclosure of this information unless further disclosure is expressly permitted by the written consent of the person to whom it pertains or as otherwise permitted by 42 CFR part 2. A general authorization for the release of medical or other information is NOT sufficient for this purpose. The Federal rules restrict any use of the information to criminally investigate or prosecute any alcohol or drug abuse patient.The records that you are about to access may contain highly sensitive health information, the redisclosure of which is protected by Article 27-F of the [facility] Public Health law. If you continue you may have access to information: Regarding HIV / AIDS; Provided by facilities licensed or operated by the [facility] Office of Mental Health; or Provided by the [facility] Office for People With Developmental Disabilities. If such information is present, then the following [facility] mandated warning applies: This information has been disclosed to you from confidential records which are protected by state law. State law prohibits you from making any further disclosure of this information without the specific written consent of the person to whom it pertains, or as otherwise permitted by law. Any unauthorized further disclosure in violation of state law may result in a fine or halfway sentence or both. A general authorization for the release of medical or other information is NOT sufficient authorization for further disc losure. Family History Family Member Name Family Member Gender Family Member Status Date o f Status Description Data Source(s) Unknown Unknown Problem MEDENT ([facility]) mother Unknown Unknown Problem MEDENT ([facility]) Unknown Unknown Problem MEDENT ([facility], ) Unknown Unknown Problem MEDENT ([facility], ) Unknown Unknown Problem MEDENT ([facility], ) Unknown Unknown Problem MEDENT ([facility], ) Encounters Encounter Providers Location Date Indications Data Source(s ) Outpatient [address] [facility] [place] [address] 05/12/2021 12:00:00 AM EDT eCW1 ([facility]) Outpatient [address] [facility] [place] [address] 04/02/2021 12:00:00 AM EDT eCW1 ([facility]) Unknown [address] [facility] [place] [address] 03/18/2021 12:00:00 AM EDT eCW1 ([facility]) Unknown [address] [facility] [place] [address] 03/10/2021 12:00:00 AM EDT eCW1 ([facility]) Unknown [address] [facility] [place] [address] 03/01/2021 12:00:00 AM EDT eCW1 ([facility]) [place] [address] [facility] [address] [place] [address] 02/09/2021 12:00:00 AM EDT eCW1 ([facility]) [place] [address] [facility] [place] [address] 01/04/2021 12:00:00 AM EDT eCW1 ([facility]) [place] [address] [facility] [place] [address] 10/26/2020 12:00:00 AM EDT eCW1 ([facility]) Outpatient Attender: Linn [email or web address].[email or web address] 06/14 12:00:00 AM EST - 07/02/2020 02:16:07 PM EST [facility] [place] [address] [facility] [place] [address] 06/26/2020 12:00:00 AM EST eCW1 ([facility]) [place] [address] [facility] [place] [address] 05/25/2020 12:00:00 AM EDT eCW1 ([facility]) Immunizations Vaccine Date Status Description Data Source(s) influenza, recombinant, quadrIvalent,injectable, prese rvative free 06/26/2020 05:00:00 PM EST completed eCW1 ([facility]) influenza, recombinant, quadrIvalent,injectable, prese rvative free 06/26/2020 05:00:00 PM EST completed eCW1 ([facility]) influenza, recombinant, quadrIvalent,injectable, prese rvative free 06/26/2020 05:00:00 PM EST completed eCW1 ([facility]) influenza, recombinant, quadrIvalent,injectable, prese rvative free 06/26/2020 05:00:00 PM EST completed eCW1 ([facility]) influenza, recombinant, quadrIvalent,injectable, prese rvative free 06/26/2020 05:00:00 PM EST completed eCW1 ([facility]) influenza, recombinant, quadrIvalent,injectable, prese rvative free 06/26/2020 05:00:00 PM EST completed eCW1 ([facility]) influenza, recombinant, quadrIvalent,injectable, prese rvative free 06/26/2020 05:00:00 PM EST completed eCW1 ([facility]) influenza, recombinant, quadrIvalent,injectable, prese rvative free 06/26/2020 05:00:00 PM EST completed eCW1 ([facility]) influenza, recombinant, quadrIvalent,injectable, prese rvative free 06/26/2020 05:00:00 PM EST completed eCW1 ([facility]) Medications Medication Brand Name Start Date Product Form Dose Route Admi nistrative Instructions Pharmacy Instructions Status Indications Reaction Description Data Source(s) 1,000 mg 03/26/2021 12:00:00 AM EDT tablet 60 TAKE ONE TABLET BY MOUTH TWICE A DAY WITH FOOD TAKE ONE TABLET BY MOUTH TWICE A DAY WITH FOOD SOLD: [facility] 1,000 mg 03/26/2021 12:00:00 AM EDT tablet 60 TAKE ONE TABLET BY MOUTH TWICE A DAY WITH FOOD TAKE ONE TABLET BY MOUTH TWICE A DAY WITH FOOD SOLD: [facility] 1,000 mg 03/26/2021 12:00:00 AM EDT tablet 60 TAKE ONE TABLET BY MOUTH TWICE A DAY WITH FOOD TAKE ONE TABLET BY MOUTH TWICE A DAY WITH FOOD SOLD: [facility] 0.01 % (0.1 mg/gram) 03/11/2021 12:00:00 AM EDT cream 42 INSERT 1 GRAM VAGINALLY TWICE WEEKLY INSERT 1 GRAM VAGINALLY TWICE WEEKLY SOLD: 03/14/2021 [facility] Magnesium Hydroxide 80 MG/ML Oral Suspension Milk Of Magnesi a 02/26/2021 12:00:00 AM EDT ORAL active M EDENT ([facility], ) Suprep Bowel Prep Kit Suprep Bowel Prep Kit 02/26/2021 12:00:00 AM EDT active MEDENT ([facility], ) SUPREP BOWEL PREP KIT 17.5-3.13-1.6 gram SODIUM, POTASSIUM,M AG SULFATES 02/26/2021 12:00:00 AM EDT recon soln 354 TAKE PER DOCTOR'S BOWEL PREP INSTRUCTIONS TAKE PER DOCTOR'S BOWEL PREP INSTRUCTIONS SOLD: 03/05/2021 [facility] 40 mg 02/23/2021 12:00:00 AM EDT tablet 30 TAKE ONE TABLET BY MOUTH EVERY DAY IN THE EVENING TAKE ONE TABLET BY MOUTH EVERY DAY IN THE EVENING SOLD : 03/29/2021 [facility] 40 mg 02/23/2021 12:00:00 AM EDT tablet 30 TAKE ONE TABLET BY MOUTH EVERY DAY IN THE EVENING TAKE ONE TABLET BY MOUTH EVERY DAY IN THE EVENING SOLD : 05/27/2021 [facility] 40 mg 02/23/2021 12:00:00 AM EDT tablet 30 TAKE ONE TABLET BY MOUTH EVERY DAY IN THE EVENING TAKE ONE TABLET BY MOUTH EVERY DAY IN THE EVENING SOLD : 04/27/2021 [facility] 40 mg 02/23/2021 12:00:00 AM EDT tablet 30 TAKE ONE TABLET BY MOUTH EVERY DAY IN THE EVENING TAKE ONE TABLET BY MOUTH EVERY DAY IN THE EVENING SOLD : 02/26/2021 [facility] 25 mcg 10/27/2020 12:00:00 AM EDT tablet 45 TAKE 1 AND 1/2 TABLET BY MOUTH EVERY MORNING ON AN EMPTY STOMACH TAKE 1 AND 1/2 TABLET BY MOUTH EVERY MOR SILVIA ON AN EMPTY STOMACH SOLD: 01/27/2021 [facility] 25 mcg 10/27/2020 12:00:00 AM EDT tablet 45 TAKE 1 AND 1/2 TABLET BY MOUTH EVERY MORNING ON AN EMPTY STOMACH TAKE 1 AND 1/2 TABLET BY MOUTH EVERY MOR SILVIA ON AN EMPTY STOMACH SOLD: 03/29/2021 [facility] 25 mcg 10/27/2020 12:00:00 AM EDT tablet 45 TAKE 1 AND 1/2 TABLET BY MOUTH EVERY MORNING ON AN EMPTY STOMACH TAKE 1 AND 1/2 TABLET BY MOUTH EVERY MOR SILVIA ON AN EMPTY STOMACH SOLD: 11/28/2020 [facility] 25 mcg 10/27/2020 12:00:00 AM EDT tablet 45 TAKE 1 AND 1/2 TABLET BY MOUTH EVERY MORNING ON AN EMPTY STOMACH TAKE 1 AND 1/2 TABLET BY MOUTH EVERY MOR SILVIA ON AN EMPTY STOMACH SOLD: 12/28/2020 [facility] 25 mcg 10/27/2020 12:00:00 AM EDT tablet 45 TAKE 1 AND 1/2 TABLET BY MOUTH EVERY MORNING ON AN EMPTY STOMACH TAKE 1 AND 1/2 TABLET BY MOUTH EVERY MOR SILVIA ON AN EMPTY STOMACH SOLD: 02/26/2021 [facility] 25 mcg 10/27/2020 12:00:00 AM EDT tablet 45 TAKE 1 AND 1/2 TABLET BY MOUTH EVERY MORNING ON AN EMPTY STOMACH TAKE 1 AND 1/2 TABLET BY MOUTH EVERY MOR SILVIA ON AN EMPTY STOMACH SOLD: 10/29/2020 [facility] 25 mcg 10/27/2020 12:00:00 AM EDT tablet 45 TAKE 1 AND 1/2 TABLET BY MOUTH EVERY MORNING ON AN EMPTY STOMACH TAKE 1 AND 1/2 TABLET BY MOUTH EVERY MOR SILVIA ON AN EMPTY STOMACH SOLD: 04/27/2021 [facility] 25 mcg 10/27/2020 12:00:00 AM EDT tablet 45 TAKE 1 AND 1/2 TABLET BY MOUTH EVERY MORNING ON AN EMPTY STOMACH TAKE 1 AND 1/2 TABLET BY MOUTH EVERY MOR SILVIA ON AN EMPTY STOMACH SOLD: 05/27/2021 [facility] 40 mg 10/19/2020 12:00:00 AM EST tablet 30 TAKE 1 TABLET BY MOUTH IN THE EVENING TAKE 1 TABLET BY MOUTH IN THE EVENING SOLD: 01/27/2021 [facility] Metformin hydrochloride 1000 MG Oral Tablet 1,000 mg METFORM IN HCL 10/19/2020 12:00:00 AM EST tablet 60 TAKE ONE TABLET BY MOUTH TWICE A DAY WITH FOOD TAKE ONE TABLET BY MOUTH TWICE A DAY WITH FOOD SOLD: 10/29/2020 [facility] 40 mg 10/19/2020 12:00:00 AM EST tablet 30 TAKE 1 TABLET BY MOUTH IN THE EVENING TAKE 1 TABLET BY MOUTH IN THE EVENING SOLD: 11/28/2020 [facility] 1,000 mg 10/19/2020 12:00:00 AM EST tablet 60 TAKE ONE TABLET BY MOUTH TWICE A DAY WITH FOOD TAKE ONE TABLET BY MOUTH TWICE A DAY WITH FOOD SOLD: 021 [facility] 1,000 mg 10/19/2020 12:00:00 AM EST tablet 60 TAKE ONE TABLET BY MOUTH TWICE A DAY WITH FOOD TAKE ONE TABLET BY MOUTH TWICE A DAY WITH FOOD SOLD: [facility] 40 mg 10/19/2020 12:00:00 AM EST tablet 30 TAKE 1 TABLET BY MOUTH IN THE EVENING TAKE 1 TABLET BY MOUTH IN THE EVENING SOLD: 12/28/2020 [facility] 1,000 mg 10/19/2020 12:00:00 AM EST tablet 60 TAKE ONE TABLET BY MOUTH TWICE A DAY WITH FOOD TAKE ONE TABLET BY MOUTH TWICE A DAY WITH FOOD SOLD: 021 [facility] 40 mg 10/19/2020 12:00:00 AM EST tablet 30 TAKE 1 TABLET BY MOUTH IN THE EVENING TAKE 1 TABLET BY MOUTH IN THE EVENING SOLD: 10/29/2020 [facility] 40 mg 07/23/2020 12:00:00 AM EST tablet 30 TAKE 1 TABLET BY MOUTH IN THE EVENING TAKE 1 TABLET BY MOUTH IN THE EVENING SOLD: 07/27/2020 [facility] 40 mg 07/23/2020 12:00:00 AM EST tablet 30 TAKE 1 TABLET BY MOUTH IN THE EVENING TAKE 1 TABLET BY MOUTH IN THE EVENING SOLD: 09/23/2020 [facility] 40 mg 07/23/2020 12:00:00 AM EST tablet 30 TAKE 1 TABLET BY MOUTH IN THE EVENING TAKE 1 TABLET BY MOUTH IN THE EVENING SOLD: 08/27/2020 [facility] Calcium Carbonate 1500 MG / Cholecalcife rol 400 UNT Oral Tablet Calcium + Vitamin D3 600-10 MG-MCG Calcium + Vitamin D3 600-10 MG-MCG 06/26/2020 12:00:00 AM EST 1.0 {tablet_with_a_meal} active Calcium + Vitamin D3 600-10 MG-MCG eCW1 ([facility]) 600 mg(1,500mg) -400 unit 06/26/2020 12:00:00 AM EST tablet 30 TAKE ONE TABLET BY MOUTH EVERY DAY WITH A MEAL TAKE ONE TABLET BY MOUTH EVERY DAY WITH A MEAL SOLD: 06/27/2020 [facility] Calcium Carbonate 1500 MG / Cholecalcife rol 400 UNT Oral Tablet Calcium + Vitamin D3 600-10 MG-MCG Calcium + Vitamin D3 600-10 MG-MCG 06/26/2020 12:00:00 AM EST 1.0 {tablet_with_a_meal} active Calcium + Vitamin D3 600-10 MG-MCG eCW1 ([facility]) Calcium + Vitamin D3 600-10 MG-MCG Calcium + Vitamin D3 600- 10 MG-MCG 06/26/2020 12:00:00 AM EST 1.0 {tablet_with_a_meal} active Calcium + Vitamin D3 600-10 MG-MCG eCW1 ([facility]) Calcium Carbonate 1500 MG / Cholecalcife rol 400 UNT Oral Tablet Calcium + Vitamin D3 600-10 MG-MCG Calcium + Vitamin D3 600-10 MG-MCG 06/26/2020 12:00:00 AM EST 1.0 {tablet_with_a_meal} active Calcium + Vitamin D3 600-10 MG-MCG eCW1 ([facility]) Calcium Carbonate 1500 MG / Cholecalcife rol 400 UNT Oral Tablet Calcium + Vitamin D3 600-10 MG-MCG Calcium + Vitamin D3 600-10 MG-MCG 06/26/2020 12:00:00 AM EST 1.0 {tablet_with_a_meal} active Calcium + Vitamin D3 600-10 MG-MCG eCW1 ([facility]) Calcium + Vitamin D3 600-10 MG-MCG Calcium + Vitamin D3 600- 10 MG-MCG 06/26/2020 12:00:00 AM EST 1.0 {tablet_with_a_meal} active Calcium + Vitamin D3 600-10 MG-MCG eCW1 ([facility]) Calcium Carbonate 1500 MG / Cholecalcife rol 400 UNT Oral Tablet Calcium + Vitamin D3 600-10 MG-MCG Calcium + Vitamin D3 600-10 MG-MCG 06/26/2020 12:00:00 AM EST 1.0 {tablet_with_a_meal} active Calcium + Vitamin D3 600-10 MG-MCG eCW1 ([facility]) Calcium Carbonate 1500 MG / Cholecalcife rol 400 UNT Oral Tablet Calcium + Vitamin D3 600-10 MG-MCG Calcium + Vitamin D3 600-10 MG-MCG 06/26/2020 12:00:00 AM EST 1.0 {tablet_with_a_meal} active Calcium + Vitamin D3 600-10 MG-MCG eCW1 ([facility]) Calcium Carbonate 1500 MG / Cholecalcife rol 400 UNT Oral Tablet Calcium + Vitamin D3 600-10 MG-MCG Calcium + Vitamin D3 600-10 MG-MCG 06/26/2020 12:00:00 AM EST 1.0 {tablet_with_a_meal} active eCW1 ([facility]) 25 mcg 06/24/2020 12:00:00 AM EST tablet 45 TAKE 1 AND 1/2 TABLET BY MOUTH EVERY MORNING ON EMPTY STOMACH TAKE 1 AND 1/2 TABLET BY MOUTH EVERY MOR SILVIA ON EMPTY STOMACH SOLD: 06/27/2020 [facility] 25 mcg 06/24/2020 12:00:00 AM EST tablet 45 TAKE 1 AND 1/2 TABLET BY MOUTH EVERY MORNING ON EMPTY STOMACH TAKE 1 AND 1/2 TABLET BY MOUTH EVERY MOR SILVIA ON EMPTY STOMACH SOLD: 08/27/2020 [facility] 25 mcg 06/24/2020 12:00:00 AM EST tablet 45 TAKE 1 AND 1/2 TABLET BY MOUTH EVERY MORNING ON EMPTY STOMACH TAKE 1 AND 1/2 TABLET BY MOUTH EVERY MOR SILVIA ON EMPTY STOMACH SOLD: 09/23/2020 [facility] 25 mcg 06/24/2020 12:00:00 AM EST tablet 45 TAKE 1 AND 1/2 TABLET BY MOUTH EVERY MORNING ON EMPTY STOMACH TAKE 1 AND 1/2 TABLET BY MOUTH EVERY MOR SILVIA ON EMPTY STOMACH SOLD: 07/27/2020 [facility] 25 mg 06/12/2020 12:00:00 AM EDT tablet 90 TAKE 1/2 TABLET BY MOUTH TWO TIMES A DAY TAKE 1/2 TABLET BY MOUTH TWO TIMES A DAY SOLD: 06/27/2020 [facility] 25 mg 06/12/2020 12:00:00 AM EDT tablet 30 TAKE 1/2 TABLET BY MOUTH TWO TIMES A DAY TAKE 1/2 TABLET BY MOUTH TWO TIMES A DAY SOLD: 03/29/2021 [facility] 25 mg 06/12/2020 12:00:00 AM EDT tablet 90 TAKE 1/2 TABLET BY MOUTH TWO TIMES A DAY TAKE 1/2 TABLET BY MOUTH TWO TIMES A DAY SOLD: 09/23/2020 [facility] 25 mg 06/12/2020 12:00:00 AM EDT tablet 30 TAKE 1/2 TABLET BY MOUTH TWO TIMES A DAY TAKE 1/2 TABLET BY MOUTH TWO TIMES A DAY SOLD: 05/27/2021 [facility] 25 mg 06/12/2020 12:00:00 AM EDT tablet 30 TAKE 1/2 TABLET BY MOUTH TWO TIMES A DAY TAKE 1/2 TABLET BY MOUTH TWO TIMES A DAY SOLD: 04/27/2021 [facility] 25 mg 06/12/2020 12:00:00 AM EDT tablet 90 TAKE 1/2 TABLET BY MOUTH TWO TIMES A DAY TAKE 1/2 TABLET BY MOUTH TWO TIMES A DAY SOLD: 12/28/2020 [facility] Metoprolol Tartrate 25 MG Oral Tablet ga toprolol tartrate (LOPRESSOR) 25 MG tablet metoprolol tartrate (LOPRESSOR) 25 MG tablet 06/11/2020 12:0 0:00 AM EDT 12.5 mg Oral active Take 0.5 tablets (12.5 mg total) by mouth 2 (two) times a day [facility] Metformin hydrochloride 1000 MG Oral Tablet 1,000 mg METFORM IN HCL 05/26/2020 12:00:00 AM EDT tablet 60 TAKE ONE TABLET BY MOUTH TWICE A DAY WITH FOOD TAKE ONE TABLET BY MOUTH TWICE A DAY WITH FOOD SOLD: 08/27/2020 [facility] Metformin hydrochloride 1000 MG Oral Tablet 1,000 mg METFORM IN HCL 05/26/2020 12:00:00 AM EDT tablet 60 TAKE ONE TABLET BY MOUTH TWICE A DAY WITH FOOD TAKE ONE TABLET BY MOUTH TWICE A DAY WITH FOOD SOLD: 06/27/2020 [facility] Metformin hydrochloride 1000 MG Oral Tablet 1,000 mg METFORM IN HCL 05/26/2020 12:00:00 AM EDT tablet 60 TAKE ONE TABLET BY MOUTH TWICE A DAY WITH FOOD TAKE ONE TABLET BY MOUTH TWICE A DAY WITH FOOD SOLD: 09/23/2020 [facility] Metformin hydrochloride 1000 MG Oral Tablet 1,000 mg METFORM IN HCL 05/26/2020 12:00:00 AM EDT tablet 60 TAKE ONE TABLET BY MOUTH TWICE A DAY WITH FOOD TAKE ONE TABLET BY MOUTH TWICE A DAY WITH FOOD SOLD: 05/27/2020 [facility] Metformin hydrochloride 1000 MG Oral Tablet 1,000 mg METFORM IN HCL 05/26/2020 12:00:00 AM EDT tablet 60 TAKE ONE TABLET BY MOUTH TWICE A DAY WITH FOOD TAKE ONE TABLET BY MOUTH TWICE A DAY WITH FOOD SOLD: 07/27/2020 [facility] 40 mg 03/17/2020 12:00:00 AM EDT tablet 30 TAKE 1 TABLET BY MOUTH IN THE EVENING TAKE 1 TABLET BY MOUTH IN THE EVENING SOLD: 05/27/2020 [facility] 40 mg 03/17/2020 12:00:00 AM EDT tablet 30 TAKE 1 TABLET BY MOUTH IN THE EVENING TAKE 1 TABLET BY MOUTH IN THE EVENING SOLD: 04/22/2020 [facility] 40 mg 03/17/2020 12:00:00 AM EDT tablet 30 TAKE 1 TABLET BY MOUTH IN THE EVENING TAKE 1 TABLET BY MOUTH IN THE EVENING SOLD: 06/27/2020 [facility] 25 mg 02/18/2020 12:00:00 AM EDT tablet 30 TAKE ONE-HALF TABLET BY MOUTH TWICE A DAY TAKE ONE-HALF TABLET BY MOUTH TWICE A DAY SOLD: 05/27/2020 [facility] 25 mg 02/18/2020 12:00:00 AM EDT tablet 30 TAKE ONE-HALF TABLET BY MOUTH TWICE A DAY TAKE ONE-HALF TABLET BY MOUTH TWICE A DAY SOLD: 04/22/2020 [facility] 25 mcg 01/15/2020 12:00:00 AM EDT tablet 45 TAKE 1 & 1/2 TABLETS BY MOUTH IN THE MORNING ON AN EMPTY STOMACH TAKE 1 & 1/2 TABLETS BY MOUTH IN THE MOR SILVIA ON AN EMPTY STOMACH SOLD: 05/27/2020 [facility] 25 mcg 01/15/2020 12:00:00 AM EDT tablet 45 TAKE 1 & 1/2 TABLETS BY MOUTH IN THE MORNING ON AN EMPTY STOMACH TAKE 1 & 1/2 TABLETS BY MOUTH IN THE MOR SILVIA ON AN EMPTY STOMACH SOLD: 04/22/2020 [facility] Metformin hydrochloride 1000 MG Oral Tablet 1,000 mg METFORM IN HCL 12/19/2019 12:00:00 AM EDT tablet 60 TAKE ONE TABLET BY MOUTH TWICE A DAY WITH MEALS TAKE ONE TABLET BY MOUTH TWICE A DAY WITH MEALS SOLD: 04/22/2020 [facility] 0.01 % (0.1 mg/gram) 12/14/2019 12:00:00 AM EDT cream 42 USE 1 GRAM VAGINALLY TWICE PER WEEK USE 1 GRAM VAGINALLY TWICE PER WEEK SOLD: 10/29/2020 [facility] 0.01 % (0.1 mg/gram) 12/14/2019 12:00:00 AM EDT cream 42 USE 1 GRAM VAGINALLY TWICE PER WEEK USE 1 GRAM VAGINALLY TWICE PER WEEK SOLD: 06/12/2020 [facility] Insurance Providers Payer name Policy type / Coverage type Policy ID Covered republican ID Covered republican's relationship to weathers Policy Weathers Plan Information MEDICARE A [id number] Self [id number] A MEDICARE COMPLETE [id number] SP [id number] MEDICARE COMPLETE [id number] SP [id number] UHC UNITED MEDICARE COMPLETE G [id number] Self [id number] MEDICAID [id number] Self [id number] MEDICARE A [id number] Self [id number] A WELLCARE MEDICARE [id number] [facility] [id number] [facility] [id number] ANSI-Medicare Part B [id number] ANSI-Medicare Part B [id number] ANSI-Medicare Part B [id number] ANSI-Medicare Part B [id number] MEDICARE COMPLETE [id number] 97 [id number] ANSI-Medicare Part B [id number] ANSI-Medicare Part B [id number] [place] [id number] ANSI-Medicare Part B [id number] [place] [facility]/Medicare Solu Commercial [id number] Self [id number] [place] [facility]/Medicare Solu Commercial [id number] Self [id number] MEDICARE COMPLETE [id number] SP [id number] [facility]/Medicare Solu Commercial [id number] Self [id number] [employer] Medicare Commercial [id number] Self MEDICARE COMPLETE-[facility] O [id number] S [id number] WELLCARE [id number] SP [id number] WELLCARE [id number] SP [id number] MEDICARE COMPLETE [id number] SP [id number] WELLCARE O [id number] S [id number] ANSI-Health Maintenance Organization (HM O) [id number] ANSI-Medicare Part B [id number] ANSI-Medicare Part B [id number] ANSI-Medicare Part B [id number] Problems, Conditions, and Diagnoses Code Display Name Description Problem Type Effective Dates Data Source(s) E11.9 Type 2 diabetes mellitus without complic ations Type 2 diabetes mellitus without complic Diagnosis 07/02/2020 01:23:07 PM [facility] I47.1 Supraventricular tachycardia Supraventricular tachycar michela Diagnosis 07/02/2020 01:23:07 PM [facility] E78.2 Mixed hyperlipidemia Mixed hyperlipidemia Diagnosis 07/02/2020 01:23:07 PM [facility] I25.10 Atherosclerotic heart diseas e of [place] coronary artery without angina pectoris Atherosclerotic heart disease of [place] Diagnosis 07/02/2020 01:23:07 PM EST [place] [facility] E03.9 Hypothyroidism, unspecified Hypothyroidism, unspecifie d Diagnosis 07/02/2020 01:23:07 PM EST [facility] E03.9 [id number] Hypothyroidism, unspecified type Problem 04/07/2021 12:00:00 AM EDT eCW1 ([facility]) Z46.89 [id number] Pessary maintenance Problem 02/09/2021 12:00 :00 AM EDT eCW1 ([facility]) [id number] Essential hypertension Essential hypertension Problem 01/27/2021 12:00:00 AM EDT LILY ([facility], ) Surgeries/Procedures Procedure Description Date Indications Data Source(s) ECG ROUTINE ECG W/LEAST 12 LDS W/I&R <td>POCT AMB EKG</td><td>Routine</td><td>07/02/2020 1:57 PM EST</td><td> 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</td><td> </td> 07/02/2020 06:57:00 PM EST 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 [facility] 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 Immunization: Flublok Quadrivalent (18 years & older) 0.5mL IM (Influenza) 06/26/2020 12:00:00 AM EST eCW1 ([facility]) Results ID Date Data Source WWBC DIGITAL / MARIA G BILATERAL MAMMO SCREENING (Ultraso und if indicated) 02/09/2021 12:00:00 AM EDT eCW1 ([facility]) Name Value Range Interpretation Code Description Data Triny rce(s) Supporting Document(s) WWBC DIGITAL / MARIA G BILAT ERAL MAMMO SCREENING (Ultrasound if indicated) eCW1 ([facility]) Procedure Social History Code Duration Value Status Description Data Source(s ) Smoking 05/12/2021 12:00:00 AM EDT Never Smoker completed Never S moker eCW1 ([facility]) Smoking 04/02/2021 12:00:00 AM EDT Never Smoker completed Never S moker eCW1 ([facility]) Smoking 02/09/2021 12:00:00 AM EDT Never Smoker completed Never S moker eCW1 ([facility]) Smoking 02/09/2021 12:00:00 AM EDT Never Smoker completed Never S moker eCW1 ([facility]) Smoking 02/09/2021 12:00:00 AM EDT Never Smoker completed Never S moker eCW1 ([facility]) Smoking 02/09/2021 12:00:00 AM EDT Never Smoker completed Never S moker eCW1 ([facility]) Smoking 10/27/2020 12:00:00 AM EDT Never Smoker completed Never S moker eCW1 ([facility]) Smoking 06/26/2020 12:00:00 AM EST Never Smoker completed Never S moker eCW1 ([facility]) Smoking 06/26/2020 12:00:00 AM EST Never Smoker completed Never S moker eCW1 ([facility]) Vital Signs ID Date Data Source UNK Name Value Range Interpretation Code Description Data Source(s) Body weight 168 [lb_av] 168 [lb_av] eCW1 ([facility]) Body height 66 [in_i] 66 [in_i] eCW1 ([facility]) Body mass index (BMI) [Ratio] 27.11 kg/m2 27.11 kg/m2 eCW1 ([facility]) Systolic blood pressure 122 mm[Hg] 122 mm[Hg] e CW1 ([facility]) Diastolic blood pressure 80 mm[Hg] 80 mm[Hg] eCW1 ([facility]) Body weight 165.2 [lb_av] 165.2 [lb_av] eCW1 ([facility]) Body weight 74.93 kg 74.93 kg W1 ([facility]) Heart rate 78 /min 78 /min eCW1 ([facility]) Body mass index (BMI) [Ratio] 26.66 kg/m2 26.66 kg/m2 eCW1 ([facility]) Diastolic blood pressure 60 mm[Hg] 60 mm[Hg] eCW1 ([facility]) Respiratory rate 18 /min 18 /min eCW1 ([facility]) Body temperature 97.2 [degF] 97.2 [degF] eCW1 ( [facility]) Systolic blood pressure 130 mm[Hg] 130 mm[Hg] e CW1 ([facility]) Body height 66 [in_i] 66 [in_i] eCW1 ([facility]) Systolic blood pressure 146 mm[Hg] 146 mm[Hg] M EDENT ([facility], ) Body surface area Derived from formula 1.82 m2 1.82 m2 [facility] ([facility]) Body mass index (BMI) [Ratio] 25.8 kg/m2 25.8 k g/m2 [facility] ([facility]) [place] body weight 130 [lb_av] 130 [lb_av] MEDEN T ([facility]) Body weight 72.576 kg 72.576 kg [facility] ([facility]) Diastolic blood pressure 62 mm[Hg] 62 mm[Hg] MEDENT ([facility]) Body height 66 [in_i] 66 [in_i] MEDENT ([facility]) 5'6" Body weight 160.00 [lb_av] 160.00 [lb_av] MEDEN T ([facility]) Body weight 163 [lb_av] 163 [lb_av] eCW1 ([facility]) Body height 66 [in_i] 66 [in_i] eCW1 ([facility]) Body mass index (BMI) [Ratio] 26.31 kg/m2 26.31 kg/m2 eCW1 ([facility]) Systolic blood pressure 122 mm[Hg] 122 mm[Hg] e CW1 ([facility]) Diastolic blood pressure 72 mm[Hg] 72 mm[Hg] eCW1 ([facility]) Systolic blood pressure 118 mm[Hg] 118 mm[Hg] [facility] Diastolic blood pressure 68 mm[Hg] 68 mm[Hg] [facility] Heart rate 76 /min 76 /min [facility] Body height 160 cm 160 cm [facility] Body weight 73.936 kg 73.936 kg [facility] Body mass index (BMI) [Ratio] 28.87 kg/m2 28.87 kg/m2 [facility] Oxygen saturation in Arterial blood by Pulse oximetry 97 % 97 % [facility] Body weight 164 [lb_av] 164 [lb_av] eCW1 ([facility]) Body height 66 [in_i] 66 [in_i] eCW1 ([facility]) Body mass index (BMI) [Ratio] 26.47 kg/m2 26.47 kg/m2 eCW1 ([facility]) Heart rate 63 /min 63 /min eCW1 ([facility]) Respiratory rate 18 /min 18 /min eCW1 ([facility]) Body temperature 97.6 [degF] 97.6 [degF] eCW1 ( [facility]) Systolic blood pressure 138 mm[Hg] 138 mm[Hg] e CW1 ([facility]) Diastolic blood pressure 76 mm[Hg] 76 mm[Hg] eCW1 ([facility]) Patient Treatment Plan of Care Planned Activity Planned Date Details Description Data Source (s) Calcium + Vitamin D3 600-10 MG-MCG 06/26/2020 12:00:00 AM EST eCW1 ([facility]) Calcium + Vitamin D3 600-10 MG-MCG 06/26/2020 12:00:00 AM EST eCW1 ([facility]) Metoprolol Tartrate 25 MG Oral Tablet 06/11/2020 12:00:00 AM EDT [facility]
--- NOTE | 2021-06-08 10:28 | ROOR ---
Patient Name: Kamini Schwab Procedure Date: 06/08/2021 9:47 AM Date of : 1945 Age: 75 Room: [facility] Gender: Female Note Status: Finalized Procedure: Colonoscopy Indications: High risk colon cancer surveillance: Personal history of colonic polyps Providers: Schuyler English MD Referring MD: [facility] [place] Requesting Provider: Medicines: Monitored Anesthesia Care Complications: No immediate complications. Procedure: Pre-Anesthesia Assessment: - The heart rate, respiratory rate, oxygen saturations, blood pressure, adequacy of pulmonary ventilation, and response to care were monitored throughout the procedure. The Colonoscope was introduced through the anus and advanced to the cecum, identified by appendiceal orifice and ileocecal valve. The colonoscopy was performed without difficulty. Findings: The perianal and digital rectal examinations were normal. A 6 mm polyp was found in the cecum. The polyp was umbilicated. The polyp was removed with a hot snare. Resection and retrieval were complete. A 4 mm polyp was found in the sigmoid colon. The polyp was sessile. The polyp was removed with a cold snare. Resection and retrieval were complete. Mild sigmoid diverticulosis and small internal hemorrhoids. The exam was otherwise without abnormality on direct and retroflexion views. Impression: - One 6 mm flat/centrally depressed polyp in the cecum, removed with a hot snare. Resected and retrieved. - One 4 mm flat polyp in the sigmoid colon, removed with a cold snare. Resected and retrieved. - Mild sigmoid diverticulosis and small internal hemorrhoids. - The examination was otherwise normal on direct and retroflexion views. Recommendation: - Telephone endoscopist for pathology results in 2 weeks. - Repeat colonoscopy PRN for surveillance based on pathology results. Procedure Code(s): --- Professional --- 94246, Colonoscopy, flexible; with removal of tumor(s), polyp(s), or other lesion(s) by snare technique Diagnosis Code(s): --- Professional --- K63.5, Polyp of colon Z86.010, Personal history of colonic polyps CPT copyright 2019 [employer]. All rights reserved. The codes documented in this report are preliminary and upon program attendant review may be revised to meet current compliance requirements. Schuyler English MD Schuyler English MD 06/08/2021 10:28:25 AM Electronically signed by Schuyler English MD Number of Addenda: 0 Note Initiated On: 06/08/2021 9:47 AM Estimated Blood Loss: Estimated blood loss: none.
[2021-06-08 10:45] VITALS: BP 131/81
== END 2021-06-08 10:55 | disposition home or self-care (01) ==
LOC: M OPP 08:08
PROVIDERS: ATTEND Internal Medicine Gastroenterology
DX: Z12.11 Encounter for screening for malignant neoplasm of colon (principal); Z86.010 Personal history of colon polyps; Z80.0 Family history of malignant neoplasm of digestive organs; Z80.8 Family history of malignant neoplasm of other organs or systems; K63.5 Polyp of colon; K57.30 Diverticulosis of large intestine without perforation or abscess without bleeding; K64.8 Other hemorrhoids; Z79.82 Long term (current) use of aspirin; Z79.84 Long term (current) use of oral hypoglycemic drugs; Z79.899 Other long term (current) drug therapy; Z91.030 Bee allergy status

== ENCOUNTER → 2021-11-03 | Outpatient (CLI) | payer MEDICARE, MEDICAID ==
[~2021-11-03] MED LIST changes: -D31000TA2 PO; -LIDOCAINE 2% 100MG/5ML SDV (FOR ANES.) As Ordered ONE; -NS 1,000 ML IV ONE; +VITA100093 PO; -propofoL 200 MG/20 ML VIAL As Ordered ONE
[2021-11-03 14:31] LABS: CHOLESTEROL RISK RATIO 2.948 (<5); FREE T4 0.94 NG/DL (0.76-1.46); THYROID STIMULATING HORMONE 4.29 uIU/ML (0.358-3.740)
[2021-11-03 14:35] LABS: HEMOGLOBIN A1c 5.7 %
== END ==
LOC: M PLALAB 11:02
PROVIDERS: ATTEND Student in an Organized Health Care Education/Training Program
DX: E78.00 Pure hypercholesterolemia, unspecified (principal); E03.9 Hypothyroidism, unspecified; R73.03 Prediabetes

== ENCOUNTER → 2022-02-17 | Outpatient (CLI) | payer MEDICARE | LOC: M WHC 08:34 | PROVIDERS: ATTEND Student in an Organized Health Care Education/Training Program | DX: Z12.31 Encounter for screening mammogram for malignant neoplasm of breast (principal) ==

== ENCOUNTER → 2022-04-20 | Outpatient (CLI) | payer MEDICARE ==
[2022-04-20 18:45] LABS: FREE T4 0.87 NG/DL (0.76-1.46); THYROID STIMULATING HORMONE 4.6 uIU/ML (0.358-3.740)
[2022-04-20 19:06] LABS: HEMOGLOBIN A1c 5.8 %
== END ==
LOC: M ADAMS 13:13
PROVIDERS: ATTEND Student in an Organized Health Care Education/Training Program
DX: R73.03 Prediabetes (principal); E03.9 Hypothyroidism, unspecified

== ENCOUNTER → 2022-08-19 | Outpatient (REF) | payer MEDICARE ==
[2022-08-19 14:08] LABS: ALBUMIN 3.5 G/DL (3.2-5.2); ALKALINE PHOSPHATASE 74 U/L (46-116); ALT/SGPT 18 U/L (7.0-40); AST/SGOT 18 U/L (<34); BILIRUBIN,TOTAL 0.5 MG/DL (0.3-1.2); BLOOD UREA NITROGEN 19 MG/DL (9-23); CALCIUM LEVEL 9.8 MG/DL (8.3-10.6); CARBON DIOXIDE LEVEL 26 MMOL/L (20-31); CHLORIDE LEVEL 103 MMOL/L (98-107); CHOLESTEROL LEVEL 161 MG/DL (<200); CHOLESTEROL RISK RATIO 2.84 (<5); CREATININE FOR GFR 0.62 MG/DL (0.55-1.30); GLOMERULAR FILTRATION RATE > 60.0 (>39); GLUCOSE, FASTING 76 MG/DL (74-106); HDL CHOLESTEROL 56.6 MG/DL (>40); LDL CHOLESTEROL 69.4 MG/DL (<100); NON-HDL-C 104 MG/DL; POTASSIUM SERUM 4.6 MMOL/L (3.5-5.1); SODIUM LEVEL 140 MMOL/L (136-145); TOTAL PROTEIN 7.1 G/DL (5.7-8.2); TRIGLYCERIDES LEVEL 175 MG/DL (<150)
== END ==
LOC: M LABDRWAD 12:29
PROVIDERS: ATTEND Nurse Practitioner Family
DX: E78.2 Mixed hyperlipidemia (principal)

== ENCOUNTER → 2022-12-28 | Outpatient (CLI) | payer MEDICARE | LOC: M PLAIMG 11:43 | PROVIDERS: ATTEND Student in an Organized Health Care Education/Training Program | DX: M20.12 Hallux valgus (acquired), left foot (principal); M19.072 Primary osteoarthritis, left ankle and foot; S91.302A Unspecified open wound, left foot, initial encounter; X58.XXXA Exposure to other specified factors, initial encounter; Y92.9 Unspecified place or not applicable; Y93.9 Activity, unspecified; Y99.9 Unspecified external cause status ==

== ENCOUNTER → 2023-01-31 | Outpatient (CLI) | payer MEDICARE | LOC: M WHC 17:09 | PROVIDERS: ATTEND Student in an Organized Health Care Education/Training Program | DX: Z12.31 Encounter for screening mammogram for malignant neoplasm of breast (principal) ==

== ENCOUNTER → 2023-02-23 | Outpatient (CLI) | payer MEDICARE | LOC: M WHC 09:24 | PROVIDERS: ATTEND Student in an Organized Health Care Education/Training Program | DX: Z12.31 Encounter for screening mammogram for malignant neoplasm of breast (principal) ==

== ENCOUNTER → 2023-04-28 | Outpatient (REF) | payer MEDICARE, MEDICAID | LOC: M LAB REF 11:28 | PROVIDERS: ATTEND Physician Assistant | DX: J02.9 Acute pharyngitis, unspecified (principal) ==

== ENCOUNTER → 2023-05-03 | Outpatient (REF) | payer MEDICARE | LOC: M SFHCPLAZ 09:37 | PROVIDERS: ATTEND Student in an Organized Health Care Education/Training Program | DX: R73.03 Prediabetes (principal); E03.9 Hypothyroidism, unspecified; R03.0 Elevated blood-pressure reading, without diagnosis of hypertension ==

== ENCOUNTER → 2023-05-17 | Outpatient (CLI) | payer MEDICARE, MEDICAID | LOC: M WHC 09:28 | PROVIDERS: ATTEND Student in an Organized Health Care Education/Training Program | DX: Z13.820 Encounter for screening for osteoporosis (principal); M85.851 Other specified disorders of bone density and structure, right thigh; M85.852 Other specified disorders of bone density and structure, left thigh ==

== ENCOUNTER → 2023-08-15 | Outpatient (REF) | payer MEDICARE, MEDICAID ==
[2023-08-18 17:30] LABS: CALCIUM LEVEL 9.3 MG/DL (8.3-10.6)
[2023-08-18 17:36] LABS: TOTAL 25(OH) VITAMIN D 71.2 NG/ML (20.0-100.0)
== END ==
LOC: M SFHCPLAZ 17:14
PROVIDERS: ATTEND Student in an Organized Health Care Education/Training Program
DX: M85.852 Other specified disorders of bone density and structure, left thigh (principal)

== ENCOUNTER → 2023-08-15 | Outpatient (REF) | payer MEDICARE, MEDICAID ==
[2023-08-15 14:31] LABS: CHOLESTEROL RISK RATIO 2.6 (<5); LDL CHOLESTEROL 71.4 MG/DL (<100)
== END ==
LOC: M LABWUC 12:40
PROVIDERS: ATTEND Nurse Practitioner Family
DX: I25.10 Atherosclerotic heart disease of native coronary artery without angina pectoris (principal)

== ENCOUNTER → 2024-02-27 | Outpatient (CLI) | payer MEDICARE, MEDICAID | LOC: M WHC 11:34 | PROVIDERS: ATTEND Student in an Organized Health Care Education/Training Program | DX: Z12.31 Encounter for screening mammogram for malignant neoplasm of breast (principal) ==

== ENCOUNTER → 2024-06-07 | Outpatient (REF) | payer MEDICARE, MEDICAID | LOC: M SFHCDERM 17:04 | PROVIDERS: ATTEND Physician Assistant | DX: L28.1 Prurigo nodularis (principal) ==

== ENCOUNTER → 2024-06-11 | Outpatient (REF) | payer MEDICARE, MEDICAID ==
[2024-06-11 14:55] LABS: SOURCE, BODY FLUID LFT KNEE
[2024-06-11 14:56] LABS: SYNOVIAL FLUID COLOR ORANGE (COLORLESS)
[2024-06-11 15:16] LABS: CRYSTALS, BODY FLUID NONE SEEN (NONE SEEN); SOURCE, BODY FLUID CRYSTALS LFT KNEE
[2024-06-11 16:19] LABS: SOURCE, BODY FLUID GLUCOSE LFT KNEE
== END ==
LOC: M LAB REF 13:47
PROVIDERS: ATTEND Physician Assistant
DX: M70.42 Prepatellar bursitis, left knee (principal)

== ENCOUNTER → 2024-06-25 | Outpatient (CLI) | payer MEDICARE, MEDICAID ==
[2024-06-25 18:31] LABS: BASO % 0.4 % (0.0-1.0); EOS # 0.2 10^3/uL (0.0-0.5); EOS % 2.9 % (0.0-3.0); HEMOGLOBIN 12.9 g/dl (12.0-15.5); LYMPH # 1.7 10^3/uL (1.5-5.0); LYMPH % 20.4 % (24.0-44.0); MEAN CORPUSCULAR HGB CONC 31.5 g/dl (32.0-36.5); MEAN CORPUSCULAR VOLUME 98.6 fl (80.0-96.0); MONO # 1.1 10^3/uL (0.0-0.8); MONO % 12.9 % (2.0-8.0); NEUTROPHILS # 5.2 10^3/uL (1.5-8.5); PLATELET COUNT, AUTOMATED 268 10^3/uL (150-450); RED BLOOD COUNT 4.16 10^6/uL (4.00-5.40); WHITE BLOOD COUNT 8.2 10^3/uL (4.0-10.0)
[2024-06-25 18:53] LABS: ERYTHROCYTE SEDIMENTATION RATE 34 mm/hr (0-30)
[2024-06-25 18:59] LABS: C REACTIVE PROTEIN QUANTITATIV < 0.40 MG/DL (<1.0)
[2024-06-25 19:00] LABS: RHEUMATOID FACTOR QUANT < 3.5 IU/ML (<14)
[2024-06-27 15:57] LABS: ANA SCREEN, IFA NEGATIVE (NEGATIVE)
[2024-06-28 22:17] LABS: IgG P18 AB NON-REACTIVE; IgG P23 AB NON-REACTIVE; IgG P28 AB NON-REACTIVE; IgG P30 AB NON-REACTIVE; IgG P39 AB NON-REACTIVE; IgG P41 AB REACTIVE; IgG P45 AB NON-REACTIVE; IgG P58 AB NON-REACTIVE; IgG P66 AB NON-REACTIVE; IgG P93 AB NON-REACTIVE; IgM P23 AB NON-REACTIVE; IgM P39 AB NON-REACTIVE; IgM P41 AB NON-REACTIVE; LYME IgG WB INTERPRETATION NEGATIVE (NEGATIVE); LYME IgM WB INTERPRETATION NEGATIVE (NEGATIVE)
== END ==
LOC: M LABDRWAD 10:49
PROVIDERS: ATTEND Physician Assistant
DX: M70.42 Prepatellar bursitis, left knee (principal)

== ENCOUNTER → 2024-07-10 | Outpatient (REF) | payer MEDICARE, MEDICAID ==
[2024-07-14 03:18] LABS: HSV-1 DNA Not Detected (Not Detected); HSV-2 DNA Not Detected (Not Detected)
== END ==
LOC: M SFHCDERM 17:18
PROVIDERS: ATTEND Physician Assistant
DX: L28.1 Prurigo nodularis (principal)

== ENCOUNTER → 2024-08-02 | Outpatient (REF) | payer MEDICARE, MEDICAID ==
[2024-08-02 17:11] LABS: HEMATOCRIT 42.1 % (36.0-47.0); HEMOGLOBIN 13.5 g/dl (12.0-15.5); MEAN CORPUSCULAR HEMOGLOBIN 30.7 pg (27.0-33.0); MEAN CORPUSCULAR HGB CONC 32.1 g/dl (32.0-36.5); MEAN CORPUSCULAR VOLUME 95.7 fl (80.0-96.0); PLATELET COUNT, AUTOMATED 306 10^3/uL (150-450); WHITE BLOOD COUNT 9.1 10^3/uL (4.0-10.0)
[2024-08-02 17:14] LABS: APPEARANCE, URINE HAZY (CLEAR); BACTERIA, URINE AUTO NEGATIVE (NEGATIVE); BILIRUBIN, URINE AUTO NEGATIVE (NEGATIVE); BLOOD, URINE BLOOD NEGATIVE (NEGATIVE); COLOR, URINE YELLOW (YELLOW); GLUCOSE, URINE (UA) AUTO NEGATIVE (NEGATIVE); KETONE, URINE AUTO NEGATIVE (NEGATIVE); LEUKOCYTE ESTERASE, URINE AUTO TRACE (NEGATIVE); NITRITE, URINE AUTO NEGATIVE (NEGATIVE); PROTEIN, URINE AUTO NEGATIVE (NEGATIVE); RBC, URINE AUTO 2 /HPF (0-3); SPECIFIC GRAVITY URINE AUTO 1.017 (1.002-1.035); SQUAMOUS EPITHELIAL CELL UR AU 6 /HPF (0-6); UROBILINOGEN, URINE AUTO 0.2 mg/dL (0.0-2.0); WBC, URINE AUTO 1 /HPF (0-3)
[2024-08-02 17:17] LABS: ALBUMIN 3.3 G/DL (3.2-5.2); ALKALINE PHOSPHATASE 83 U/L (35-104); ALT/SGPT 17 U/L (7.0-40); AST/SGOT 19 U/L (<34); BILIRUBIN,TOTAL 0.4 MG/DL (0.3-1.2); BLOOD UREA NITROGEN 20 MG/DL (9-23); C REACTIVE PROTEIN QUANTITATIV < 0.50 MG/DL (<1.0); CALCIUM LEVEL 9.5 MG/DL (8.3-10.6); CARBON DIOXIDE LEVEL 30 MMOL/L (20-31); CHLORIDE LEVEL 105 MMOL/L (98-107); CREATININE FOR GFR 0.57 MG/DL (0.55-1.30); GLOMERULAR FILTRATION RATE > 60.0 (>39); GLUCOSE, FASTING 81 MG/DL (74-106); POTASSIUM SERUM 4.3 MMOL/L (3.5-5.1); SODIUM LEVEL 142 MMOL/L (136-145); TOTAL PROTEIN 7.3 G/DL (5.7-8.2)
[2024-08-02 17:18] LABS: ANTI-STREPTOLYSIN O QUANT 62.5 IU/ML (<195)
[2024-08-02 17:21] LABS: ERYTHROCYTE SEDIMENTATION RATE 54 mm/hr (0-30)
[2024-08-02 17:23] LABS: INR 0.99; PARTIAL THROMBOPLASTIN TIME 26.5 SECONDS (24.8-34.2); PROTHROMBIN TIME 13.4 SECONDS (12.5-14.5)
[2024-08-07 23:06] LABS: LYME PCR FOR BODY FLUID Negative (Negative)
[2024-08-07 23:38] LABS: ANCA SCREEN ATYP P-ANCA POS (Negative)
[2024-08-08 01:41] LABS: BORRELIA SPECIES DNA NOT DETECTED (NOT DETECT)
[2024-08-08 08:17] LABS: Anaplasma phagocytophilum NOT DETECTED (NOT DETECT)
[2024-08-08 08:42] LABS: Babesia microti NOT DETECTED (NOT DETECT)
[2024-08-08 09:07] LABS: Ehrlichia chaffeensis NOT DETECTED (NOT DETECT)
== END ==
LOC: M SFHCADAM 14:22
PROVIDERS: ATTEND Physician Assistant
DX: I77.6 Arteritis, unspecified (principal); D69.3 Immune thrombocytopenic purpura

== ENCOUNTER → 2024-08-02 | Outpatient (CLI) | payer MEDICARE, MEDICAID | LOC: M ADAMS 14:42 | PROVIDERS: ATTEND Physician Assistant | DX: I77.6 Arteritis, unspecified (principal) ==

== ENCOUNTER → 2024-10-02 | Outpatient (CLI) | payer MEDICARE, MEDICAID ==
[2024-10-02 18:06] LABS: ANTI-STREPTOLYSIN O QUANT 63.3 IU/ML (<195); COMPLEMENT C4 30.4 MG/DL (12-36); RHEUMATOID FACTOR QUANT 3.6 IU/ML (<14)
[2024-10-02 18:19] LABS: HEPATITIS B SURFACE ANTIGEN NEGATIVE (NEGATIVE)
[2024-10-02 18:31] LABS: HIV 1&2 SCREEN NEGATIVE (NEGATIVE)
[2024-10-02 18:40] LABS: HEPATITIS B CORE ANTIBODY IGM NEGATIVE (NEGATIVE); HEPATITIS C VIRUS ABY INDEX 0.13 INDEX (<0.8)
[2024-10-03 19:05] LABS: CRYOGLOBULINS NEGATIVE (NEGATIVE)
[2024-10-04 14:37] LABS: SSA SJOGRENS A <1.0 NEG AI (<1.0 NEG); SSB SJOGRENS B <1.0 NEG AI (<1.0 NEG)
[2024-10-04 15:08] LABS: ANA SCREEN, IFA NEGATIVE (NEGATIVE)
== END ==
LOC: M LABDRWAD 13:17
PROVIDERS: ATTEND Physician Assistant
DX: Z01.89 Encounter for other specified special examinations (principal); I77.6 Arteritis, unspecified

== ENCOUNTER → 2024-10-07 | Outpatient (REF) | payer MEDICARE, MEDICAID ==
[2024-10-09 13:52] LABS: QuantiFERON-TB Gold Plus NEGATIVE (NEGATIVE)
== END ==
LOC: M LABDRWAD 12:39
PROVIDERS: ATTEND Physician Assistant
DX: I77.6 Arteritis, unspecified (principal)

== ENCOUNTER → 2024-10-15 | Outpatient (CLI) | payer MEDICARE, MEDICAID ==
[2024-10-17 19:48] LABS: ANTI SMITH(Sm) AB <1.0 NEG AI (<1.0 NEG)
[2024-10-28 15:47] LABS: HLA-B27 Negative (Negative)
== END ==
LOC: M ADAMS 11:03
PROVIDERS: ATTEND Physician Assistant
DX: I77.6 Arteritis, unspecified (principal)

== ENCOUNTER → 2024-10-31 | Outpatient (CLI) | payer MEDICARE, MEDICAID ==
[2024-10-31 08:51] LABS: BASO % 0.2 % (0.0-1.0); EOS # 0.1 10^3/uL (0.0-0.5); EOS % 0.7 % (0.0-3.0); HEMATOCRIT 42.4 % (36.0-47.0); HEMOGLOBIN 13.5 g/dl (12.0-15.5); LYMPH # 0.8 10^3/uL (1.5-5.0); LYMPH % 9.3 % (24.0-44.0); MEAN CORPUSCULAR HEMOGLOBIN 30.8 pg (27.0-33.0); MEAN CORPUSCULAR HGB CONC 31.8 g/dl (32.0-36.5); MEAN CORPUSCULAR VOLUME 96.8 fl (80.0-96.0); MONO # 0.3 10^3/uL (0.0-0.8); NEUTROPHILS # 7.7 10^3/uL (1.5-8.5); NEUTROPHILS % 86.4 % (36.0-66.0); PLATELET COUNT, AUTOMATED 302 10^3/uL (150-450); RED BLOOD COUNT 4.38 10^6/uL (4.00-5.40); WHITE BLOOD COUNT 8.9 10^3/uL (4.0-10.0)
[2024-10-31 09:16] LABS: ALBUMIN 3.3 G/DL (3.2-5.2); ALKALINE PHOSPHATASE 74 U/L (35-104); ALT/SGPT 20 U/L (7.0-40); AST/SGOT 16 U/L (<34); BILIRUBIN,TOTAL 0.5 MG/DL (0.3-1.2); BLOOD UREA NITROGEN 19 MG/DL (9-23); CALCIUM LEVEL 9.3 MG/DL (8.3-10.6); CARBON DIOXIDE LEVEL 29 MMOL/L (20-31); CHLORIDE LEVEL 103 MMOL/L (98-107); CREATININE FOR GFR 0.58 MG/DL (0.55-1.30); GLOMERULAR FILTRATION RATE > 60.0 (>32); GLUCOSE, FASTING 112 MG/DL (74-106); POTASSIUM SERUM 4.3 MMOL/L (3.5-5.1); SODIUM LEVEL 142 MMOL/L (136-145)
== END ==
LOC: M LAB 08:05
PROVIDERS: ATTEND Physician Assistant
DX: I77.6 Arteritis, unspecified (principal)

== ENCOUNTER → 2024-11-21 | Outpatient (REF) | payer MEDICARE, MEDICAID ==
[2024-11-21 17:27] LABS: BASO % 0.2 % (0.0-1.0); EOS % 0.3 % (0.0-3.0); HEMATOCRIT 39.7 % (36.0-47.0); HEMOGLOBIN 12.4 g/dl (12.0-15.5); LYMPH # 1.8 10^3/uL (1.5-5.0); LYMPH % 15.4 % (24.0-44.0); MEAN CORPUSCULAR HEMOGLOBIN 30.4 pg (27.0-33.0); MEAN CORPUSCULAR HGB CONC 31.2 g/dl (32.0-36.5); MEAN CORPUSCULAR VOLUME 97.3 fl (80.0-96.0); MONO # 1.1 10^3/uL (0.0-0.8); MONO % 9.2 % (2.0-8.0); NEUTROPHILS # 8.6 10^3/uL (1.5-8.5); NEUTROPHILS % 74.5 % (36.0-66.0); PLATELET COUNT, AUTOMATED 302 10^3/uL (150-450); RED BLOOD COUNT 4.08 10^6/uL (4.00-5.40); WHITE BLOOD COUNT 11.5 10^3/uL (4.0-10.0)
== END ==
LOC: M SFHCADAM 13:46
PROVIDERS: ATTEND Physician Assistant
DX: L88 Pyoderma gangrenosum (principal)

== ENCOUNTER → 2024-12-10 | Outpatient (REF) | payer MEDICARE, MEDICAID | LOC: M SFHCPLAZ 09:33 | PROVIDERS: ATTEND Family Medicine | DX: Z53.9 Procedure and treatment not carried out, unspecified reason (principal) ==

== ENCOUNTER → 2024-12-10 | Outpatient (CLI) | payer MEDICARE, MEDICAID ==
[2024-12-10 14:53] LABS: HEMOGLOBIN A1c 5.5 % (4.0-6.0)
[2024-12-10 15:12] LABS: CHOLESTEROL RISK RATIO 2.43 (<5); HDL CHOLESTEROL 77.2 MG/DL (>40); LDL CHOLESTEROL 92.2 MG/DL (<100); NON-HDL-C 110.8 MG/DL
[2024-12-10 15:15] LABS: FREE T4 0.99 NG/DL (0.89-1.76); THYROID STIMULATING HORMONE 1.667 uIU/ML (0.55-4.78)
== END ==
LOC: M ADAMS 09:53
PROVIDERS: ATTEND Family Medicine
DX: Z00.00 Encounter for general adult medical examination without abnormal findings (principal); E03.9 Hypothyroidism, unspecified; E11.9 Type 2 diabetes mellitus without complications

== ENCOUNTER → 2024-12-23 | Outpatient (CLI) | payer MEDICARE, MEDICAID | LOC: M WHC 11:04 | PROVIDERS: ATTEND Student in an Organized Health Care Education/Training Program | DX: M85.89 Other specified disorders of bone density and structure, multiple sites (principal); Z87.39 Personal history of other diseases of the musculoskeletal system and connective tissue ==

== ENCOUNTER → 2025-02-28 | Outpatient (CLI) | payer MEDICARE, MEDICAID | LOC: M WHC 10:15 | PROVIDERS: ATTEND Student in an Organized Health Care Education/Training Program | DX: Z12.31 Encounter for screening mammogram for malignant neoplasm of breast (principal); R92.313 Mammographic fatty tissue density, bilateral breasts ==

== ENCOUNTER → 2025-05-07 | Outpatient (REF) | payer MEDICARE, MEDICAID ==
[2025-05-07 14:31] LABS: APPEARANCE, URINE CLEAR (CLEAR); BACTERIA, URINE AUTO NEGATIVE (NEGATIVE); BILIRUBIN, URINE AUTO NEGATIVE (NEGATIVE); BLOOD, URINE BLOOD 1+ (NEGATIVE); GLUCOSE, URINE (UA) AUTO NEGATIVE (NEGATIVE); KETONE, URINE AUTO NEGATIVE (NEGATIVE); LEUKOCYTE ESTERASE, URINE AUTO NEGATIVE (NEGATIVE); NITRITE, URINE AUTO NEGATIVE (NEGATIVE); PROTEIN, URINE AUTO NEGATIVE (NEGATIVE); RBC, URINE AUTO 54 /HPF (0-3); SPECIFIC GRAVITY URINE AUTO 1.020 (1.002-1.035); SQUAMOUS EPITHELIAL CELL UR AU 0 /HPF (0-6); UROBILINOGEN, URINE AUTO 4.0 mg/dL (0.0-2.0); WBC, URINE AUTO 1 /HPF (0-3)
== END ==
LOC: M SFHCWAGY 12:56
PROVIDERS: ATTEND Nurse Practitioner Family
DX: R32 Unspecified urinary incontinence (principal)